=== PATIENT | female | born 1975 | race Caucasian/White ===

== ENCOUNTER 2021-05-01 13:14 | Inpatient (IN) | payer MEDICAID, OTHER ==
[~2021-05-01] VITALS: Ht 175.3 cm; Wt 82.7 kg
[~2021-05-01 13:14] MED LIST: ARIP1TAB7 PO; BUPR150T42 PO; CITA20TA9 PO; DICY20TA PO; FAMO40TA7; FER325T PO; HYDR-2598; LAMO100T44; LORA-205; LORA-205 PO; VENL-165 PO
[2021-05-01] MEDS ORDERED: SODIUM CHLORIDE 0.9% 1,000 ML IV ONE (14:00)
[2021-05-01] MEDS ORDERED: AZITHROMYCIN 500MG/ 250ML 250 ML IV ONE (14:15)
[2021-05-01] MEDS ORDERED: cefTRIAXone 1GM/50ML D5W 50 ML IV ONE (14:15)
[2021-05-01] MEDS ORDERED: DexAMETHasone SOD PHOS 10MG/1ML VIAL INJ IV ONE (14:15)
[2021-05-01 14:55] LABS: Mean Corpuscular Hemoglobin 16.5 pg (28.0-32.0); Mean Corpuscular Hgb Conc. 25.9 g/dL (32.0-36.0)
[2021-05-01 14:56] LABS: Hematocrit 24.3 % (36.0-46.0); Red Blood Cells 3.81 10^6/uL (4.0-5.20)
[2021-05-01 15:12] LABS: Albumin 2.4 g/dL (3.4-5.0)
[2021-05-01 15:17] LABS: BUN/Creatinine Ratio 15.5; Bilirubin, Total 0.3 mg/dL (0.2-1.0)
[2021-05-01 15:19] LABS: Hemoglobin 6.3 g/dL (12.2-16.2); White Blood Cell 1.6 10^3/uL (4.4-10.8)
[2021-05-01 15:21] LABS: Basophils % (manual) 0 (0.0-2.0); Blast Cells 0; Eosinophils % (manual) 0 (0-7); Metamyelocytes % 0; Myelocytes % 0; Promyelocytes % 0; Reactive Lymphocytes 0
[2021-05-01 15:54] LABS: Potassium 2.8 mmol/L (3.5-5.1)
[2021-05-01 16:49] LABS: Band Neutrophils % (manual) 6; Lymphocytes % (manual) 21 (10.0-50.0); Monocytes % (manual) 10 (0-12)
[2021-05-01 19:50] VITALS: BP 128/80
[2021-05-01 20:10] VITALS: BP 133/80
[2021-05-01 20:40] VITALS: BP 128/82
[2021-05-01] MEDS ORDERED: DOCUSATE SOD 100 MG CAP PO PRN (21:00)
[2021-05-01] MEDS ORDERED: TEMAZEPAM 15 MG CAP PO PRN (21:00)
[2021-05-01] MEDS: SODIUM CHLORIDE 0.9% 1,000 ML IV SCH (21:00)
[2021-05-01 21:30] VITALS: BP 122/77
[2021-05-01 22:30] VITALS: BP 130/78
[2021-05-01] MEDS ORDERED: MORPHINE SULFATE INJECTION 2 MG/ML SYRG IV PRN (22:30)
[2021-05-01] MEDS ORDERED: NITROGLYCERIN 0.4 MG SL TAB SL PRN (22:30)
[2021-05-01] MEDS: FAMOTIDINE (10MG/ML) 2ML VL IV SCH (22:52)
[2021-05-01] MEDS: POTASSIUM CHL 20MEQ/100ML 100 ML IV SCH (22:53)
[2021-05-01] MEDS: ONDANSETRON HCL 4 MG/2 ML VIAL IV PRN (22:53)
[2021-05-01 22:59] VITALS: BP 130/78
[2021-05-01] MEDS: HYDROmorphone HCL 2 MG/ML VL IV PRN (23:04)
[2021-05-02] MEDS: POTASSIUM CHL 20MEQ/100ML 100 ML IV SCH (01:00)
[2021-05-02 02:28] LABS: Urine Bacteria FEW /hpf (None Seen); Urine Blood Negative /uL (Negative); Urine Hyaline Cast MANY /lpf (0 - 2); Urine WBC 6 /hpf (0 - 5)
[2021-05-02] MEDS: HYDROmorphone HCL 2 MG/ML VL IV PRN ×4 (03:54→20:42)
[2021-05-02 05:00] VITALS: BP 113/78
[2021-05-02 05:19] VITALS: BP 117/77
[2021-05-02 06:30] LABS: Hemoglobin 7.6 g/dL (12.2-16.2); Mean Corpuscular Hemoglobin 18.6 pg (28.0-32.0); Mean Corpuscular Hgb Conc. 29.2 g/dL (32.0-36.0); Mean Corpuscular Volume 63.7 fL (80.0-100.0); Red Blood Cells 4.07 10^6/uL (4.0-5.20)
[2021-05-02 06:36] LABS: % Iron Saturation 3.6 % (15-50)
[2021-05-02 06:37] LABS: Potassium 4.1 mmol/L (3.5-5.1)
[2021-05-02 06:40] LABS: Ferritin 42.8 ng/mL (10-322)
[2021-05-02 06:51] LABS: Albumin 2.5 g/dL (3.4-5.0); BUN/Creatinine Ratio 21.1; Bilirubin, Total 0.4 mg/dL (0.2-1.0); CRP High Sensitivity 6.56 mg/dL (< 0.3); Calcium 7.1 mg/dL (8.5-10.1); Total Protein 5.8 g/dL (6.4-8.2)
[2021-05-02 06:55] LABS: Thyroid Stimulating Hormone 4.86 uIU/mL (0.358-3.74)
[2021-05-02 07:00] LABS: Red Cell Distribution Width 23.7 % (11.8-14.3)
[2021-05-02 07:03] LABS: White Blood Cell 1.5 10^3/uL (4.4-10.8)
[2021-05-02 07:05] LABS: Eosinophils % (manual) 0 (0-7)
[2021-05-02 07:06] LABS: Basophils % (manual) 0 (0.0-2.0); Blast Cells 0; Myelocytes % 0; Promyelocytes % 0; Reactive Lymphocytes 0
[2021-05-02 08:51] VITALS: BP 115/70
[2021-05-02] MEDS: DexAMETHasone SOD PHOS 10MG/1ML VIAL INJ IV SCH (10:00)
[2021-05-02] MEDS: FAMOTIDINE (10MG/ML) 2ML VL IV SCH ×2 (10:01→20:41)
[2021-05-02] MEDS: AZITHROMYCIN 500MG/ 250ML 250 ML IV SCH (10:01)
[2021-05-02] MEDS: MULTIPLE VITAMIN TAB PO SCH (10:02)
[2021-05-02] MEDS: CHOLECALCIFEROL (VITD3) 2,000 UNIT CAP/TAB PO SCH (10:02)
[2021-05-02] MEDS: ZINC SULFATE 220mg CAP or TAB PO SCH (10:02)
[2021-05-02] MEDS: ASCORBIC ACID 1,000 MG TAB PO SCH (10:02)
[2021-05-02] MEDS: ENOXAPARIN SOD 40 MG/0.4 ML SYRINGE SC SCH (10:03)
[2021-05-02] MEDS: cefTRIAXone 1GM/50ML D5W 50 ML IV SCH (10:04)
[2021-05-02] MEDS: BUDESONIDE (INHALATION) 180 MCG IH IN SCH ×2 (10:54→21:17)
[2021-05-02] MEDS: ALBUTEROL SULF HFA 90MCG INH 200DOSE IN PRN ×2 (10:55→23:50)
[2021-05-02 12:09] LABS: Band Neutrophils % (manual) 6; Lymphocytes % (manual) 27 (10.0-50.0); Metamyelocytes % 1; Monocytes % (manual) 7 (0-12)
[2021-05-02] MEDS: ONDANSETRON HCL 4 MG/2 ML VIAL IV PRN (12:26)
[2021-05-02 12:54] VITALS: BP 100/68
[2021-05-02] MEDS: SODIUM CHLORIDE 0.9% 1,000 ML IV SCH (14:05)
[2021-05-02 16:50] VITALS: BP 113/72
[2021-05-02 22:00] VITALS: BP 120/68
[2021-05-03] MEDS: HYDROmorphone HCL 2 MG/ML VL IV PRN ×5 (00:47→20:53)
[2021-05-03 04:50] VITALS: BP 111/72
[2021-05-03] MEDS: SODIUM CHLORIDE 0.9% 1,000 ML IV SCH (06:36)
[2021-05-03 07:02] LABS: Basophils # (auto) 0 10 ^3/uL (0-0.2); Eosinophils # (auto) 0 10 ^3/uL (0-0.8); Lymphocytes # (auto) 0.6 10 ^3/uL (0.4-5.4); Mean Corpuscular Hgb Conc. 28.8 g/dL (32.0-36.0); Monocytes # (auto) 0.2 10 ^3/uL (0-1.3); White Blood Cell 2.2 10^3/uL (4.4-10.8)
[2021-05-03 07:04] LABS: Hematocrit 25.7 % (36.0-46.0); Lymphocytes % (auto) 25.1 % (10.0-50.0); Monocytes % (auto) 8.2 % (0.0-12.0); Neutrophils # (auto) 1.5 10 ^3/uL (1.6-8.6); Neutrophils % (auto) 66.7 % (37.0-80.0); Red Blood Cells 3.93 10^6/uL (4.0-5.20)
[2021-05-03 07:06] LABS: Nucleated Red Blood Cells % 3.2 %
[2021-05-03 07:07] LABS: Hemoglobin 7.4 g/dL (12.2-16.2); Mean Corpuscular Hemoglobin 18.8 pg (28.0-32.0); Mean Corpuscular Volume 65.4 fL (80.0-100.0); Red Cell Distribution Width 23.8 % (11.8-14.3)
[2021-05-03 07:24] LABS: Potassium 4.3 mmol/L (3.5-5.1)
[2021-05-03 07:30] LABS: Albumin 2.5 g/dL (3.4-5.0); BUN/Creatinine Ratio 19.3; Bilirubin, Total 0.4 mg/dL (0.2-1.0); Calcium 7.4 mg/dL (8.5-10.1); Total Protein 5.9 g/dL (6.4-8.2)
[2021-05-03] MEDS: LORazepam 2MG/ML-1ML VIAL IV PRN ×2 (07:33→17:55)
[2021-05-03 08:41] VITALS: BP 123/74
[2021-05-03] MEDS: DexAMETHasone SOD PHOS 10MG/1ML VIAL INJ IV SCH (08:59)
[2021-05-03] MEDS: cefTRIAXone 1GM/50ML D5W 50 ML IV SCH (08:59)
[2021-05-03] MEDS: ZINC SULFATE 220mg CAP or TAB PO SCH (08:59)
[2021-05-03] MEDS: FAMOTIDINE (10MG/ML) 2ML VL IV SCH ×2 (08:59→20:00)
[2021-05-03] MEDS: AZITHROMYCIN 500MG/ 250ML 250 ML IV SCH (08:59)
[2021-05-03] MEDS: ENOXAPARIN SOD 40 MG/0.4 ML SYRINGE SC SCH (09:00)
[2021-05-03] MEDS: ASCORBIC ACID 1,000 MG TAB PO SCH (09:00)
[2021-05-03] MEDS: MULTIPLE VITAMIN TAB PO SCH (09:00)
[2021-05-03] MEDS: CHOLECALCIFEROL (VITD3) 2,000 UNIT CAP/TAB PO SCH (09:00)
[2021-05-03 09:13] LABS: Free T4 (Free Thyroxine) 0.57 ng/dL (0.89-1.76)
[2021-05-03 09:14] LABS: Folate (Folic Acid) > 24.00 ng/mL (5.38-24)
[2021-05-03] MEDS: BUDESONIDE (INHALATION) 180 MCG IH IN SCH ×2 (09:17→18:30)
[2021-05-03] MEDS: ALBUTEROL SULF HFA 90MCG INH 200DOSE IN PRN ×2 (09:17→18:30)
[2021-05-03 12:48] LABS: Alcohol, Urine < 3.0 mg/dL (0-10); Amphetamine Screen, Urine NEGATIVE (NEGATIVE); Barbiturate Scree,Urine NEGATIVE (NEGATIVE); Benzodiazephine Screen, Urine NEGATIVE (NEGATIVE); Cannabinoid Screen, Urine NEGATIVE (NEGATIVE); Cocaine Screen, Urine NEGATIVE (NEGATIVE); Opiate Scree,Urine NEGATIVE (NEGATIVE); Phencyclidine Screen, Urine NEGATIVE (NEGATIVE)
[2021-05-03 12:51] VITALS: BP 122/82
[2021-05-03] MEDS ORDERED: REMDESIVIR 200 MG in NS 210ml LOADING DOSE ADULT IV ONE (15:00)
[2021-05-03 17:00] VITALS: BP 113/71
[2021-05-03 22:14] VITALS: BP 116/64
[2021-05-04] VITALS (7 sets, daily range): BP systolic 109–128; BP diastolic 68–92
[2021-05-04] MEDS: LORazepam 2MG/ML-1ML VIAL IV PRN ×2 (04:27→18:32)
[2021-05-04] MEDS: HYDROmorphone HCL 2 MG/ML VL IV PRN ×3 (05:23→23:30)
[2021-05-04] MEDS: BUDESONIDE (INHALATION) 180 MCG IH IN SCH ×2 (05:45→19:20)
[2021-05-04] MEDS: ALBUTEROL SULF HFA 90MCG INH 200DOSE IN PRN ×2 (05:45→19:20)
[2021-05-04 07:18] LABS: Albumin 2.3 g/dL (3.4-5.0); Calcium 7.4 mg/dL (8.5-10.1); Potassium 3.9 mmol/L (3.5-5.1)
[2021-05-04 07:22] LABS: Bilirubin, Total 0.5 mg/dL (0.2-1.0); Total Protein 5.4 g/dL (6.4-8.2)
[2021-05-04] MEDS: DexAMETHasone SOD PHOS 10MG/1ML VIAL INJ IV SCH (09:43)
[2021-05-04 09:44] LABS: Basophils # (auto) 0 10 ^3/uL (0-0.2); Eosinophils # (auto) 0 10 ^3/uL (0-0.8); Lymphocytes # (auto) 0.7 10 ^3/uL (0.4-5.4); Monocytes # (auto) 0.2 10 ^3/uL (0-1.3); Red Blood Cells 3.77 10^6/uL (4.0-5.20); White Blood Cell 2.3 10^3/uL (4.4-10.8)
[2021-05-04 09:45] LABS: Basophils % (auto) 0.5 % (0.0-2.0); Hematocrit 24.7 % (36.0-46.0); Lymphocytes % (auto) 28.9 % (10.0-50.0); Mean Corpuscular Hgb Conc. 28.3 g/dL (32.0-36.0); Neutrophils # (auto) 1.5 10 ^3/uL (1.6-8.6); Neutrophils % (auto) 63.6 % (37.0-80.0)
[2021-05-04] MEDS: MULTIPLE VITAMIN TAB PO SCH (09:46)
[2021-05-04] MEDS: ASCORBIC ACID 1,000 MG TAB PO SCH (09:46)
[2021-05-04] MEDS: CHOLECALCIFEROL (VITD3) 2,000 UNIT CAP/TAB PO SCH (09:47)
[2021-05-04] MEDS: ZINC SULFATE 220mg CAP or TAB PO SCH (09:48)
[2021-05-04] MEDS: cefTRIAXone 1GM/50ML D5W 50 ML IV SCH (09:49)
[2021-05-04] MEDS: ENOXAPARIN SOD 40 MG/0.4 ML SYRINGE SC SCH (10:00)
[2021-05-04 10:21] LABS: Nucleated Red Blood Cells % 4.2 %
[2021-05-04 10:23] LABS: Mean Corpuscular Hemoglobin 18.5 pg (28.0-32.0); Mean Corpuscular Volume 65.5 fL (80.0-100.0)
[2021-05-04 10:24] LABS: Red Cell Distribution Width 24.3 % (11.8-14.3)
[2021-05-04] MEDS: FAMOTIDINE 20 MG TAB PO SCH ×2 (10:59→22:30)
[2021-05-04] MEDS: AZITHROMYCIN 500MG/ 250ML 250 ML IV SCH (11:00)
[2021-05-04] MEDS: SODIUM FERR GLUC 62.5MG/5ML 125 MG in SODIUM CHL 0.9% 100 ML IV SCH (14:37)
[2021-05-04] MEDS: REMDESIVIR 100mg 100 MG in SODIUM CHL 0.9% 230 ML IV SCH (15:46)
[2021-05-05] MEDS: HYDROmorphone HCL 2 MG/ML VL IV PRN ×4 (04:41→20:43)
[2021-05-05 05:00] VITALS: BP 117/69
[2021-05-05] MEDS: BUDESONIDE (INHALATION) 180 MCG IH IN SCH ×2 (06:56→21:00)
[2021-05-05] MEDS: ALBUTEROL SULF HFA 90MCG INH 200DOSE IN PRN (06:56)
[2021-05-05 07:05] LABS: Hematocrit 27.5 % (36.0-46.0); Hemoglobin 7.7 g/dL (12.2-16.2); Mean Corpuscular Hgb Conc. 27.9 g/dL (32.0-36.0); White Blood Cell 2.6 10^3/uL (4.4-10.8)
[2021-05-05 07:07] LABS: Mean Corpuscular Hemoglobin 17.9 pg (28.0-32.0); Mean Corpuscular Volume 64.3 fL (80.0-100.0); Red Blood Cells 4.28 10^6/uL (4.0-5.20)
[2021-05-05 07:15] LABS: Red Cell Distribution Width 25.1 % (11.8-14.3)
[2021-05-05 07:17] LABS: Basophils % (manual) 0 (0.0-2.0); Blast Cells 0; Eosinophils % (manual) 0 (0-7); Metamyelocytes % 0; Myelocytes % 0; Promyelocytes % 0; Reactive Lymphocytes 0
[2021-05-05 07:48] LABS: Potassium 4.1 mmol/L (3.5-5.1)
[2021-05-05 08:00] VITALS: BP 116/78
[2021-05-05 08:00] LABS: Albumin 2.2 g/dL (3.4-5.0); BUN/Creatinine Ratio 19.5; Bilirubin, Total 0.4 mg/dL (0.2-1.0); CRP High Sensitivity 7.77 mg/dL (< 0.3); Calcium 7.8 mg/dL (8.5-10.1); Total Protein 5.6 g/dL (6.4-8.2)
[2021-05-05 09:00] VITALS: BP 116/78
[2021-05-05] MEDS: cefTRIAXone 1GM/50ML D5W 50 ML IV SCH (09:11)
[2021-05-05] MEDS: DexAMETHasone SOD PHOS 10MG/1ML VIAL INJ IV SCH (09:11)
[2021-05-05] MEDS: FAMOTIDINE 20 MG TAB PO SCH ×2 (09:12→21:09)
[2021-05-05] MEDS: ZINC SULFATE 220mg CAP or TAB PO SCH (09:12)
[2021-05-05] MEDS: MULTIPLE VITAMIN TAB PO SCH (09:12)
[2021-05-05] MEDS: ASCORBIC ACID 1,000 MG TAB PO SCH (09:12)
[2021-05-05] MEDS: CHOLECALCIFEROL (VITD3) 2,000 UNIT CAP/TAB PO SCH (09:12)
[2021-05-05 09:53] LABS: Band Neutrophils % (manual) 8; Lymphocytes % (manual) 24 (10.0-50.0); Monocytes % (manual) 6 (0-12)
[2021-05-05] MEDS: ENOXAPARIN SOD 40 MG/0.4 ML SYRINGE SC SCH (10:00)
[2021-05-05] MEDS: AZITHROMYCIN 500MG/ 250ML 250 ML IV SCH (10:53)
[2021-05-05] MEDS ORDERED: LACTULOSE 20Gm/30ML SOLN PO ONE (11:15)
[2021-05-05] MEDS ORDERED: FUROSEMIDE 40 MG/4 ML VIAL IV ONE (11:15)
[2021-05-05 13:00] VITALS: BP 119/73
[2021-05-05] MEDS: LORazepam 2MG/ML-1ML VIAL IV PRN (13:11)
[2021-05-05] MEDS: SODIUM FERR GLUC 62.5MG/5ML 125 MG in SODIUM CHL 0.9% 100 ML IV SCH (13:12)
[2021-05-05] MEDS: REMDESIVIR 100mg 100 MG in SODIUM CHL 0.9% 230 ML IV SCH (15:23)
[2021-05-05 16:40] VITALS: BP 101/61
[2021-05-05 21:09] VITALS: BP 124/75
[2021-05-06] MEDS: LORazepam 2MG/ML-1ML VIAL IV PRN ×2 (00:08→14:04)
[2021-05-06] MEDS: ALBUTEROL SULF HFA 90MCG INH 200DOSE IN PRN ×3 (01:25→21:38)
[2021-05-06] MEDS: HYDROmorphone HCL 2 MG/ML VL IV PRN ×4 (02:17→21:10)
[2021-05-06 05:00] VITALS: BP 112/66
[2021-05-06 08:00] VITALS: BP 140/79
[2021-05-06] MEDS: BUDESONIDE (INHALATION) 180 MCG IH IN SCH ×2 (08:42→21:38)
[2021-05-06 09:00] VITALS: BP 140/79
[2021-05-06] MEDS: DexAMETHasone SOD PHOS 10MG/1ML VIAL INJ IV SCH (09:48)
[2021-05-06] MEDS: cefTRIAXone 1GM/50ML D5W 50 ML IV SCH (09:48)
[2021-05-06] MEDS: MULTIPLE VITAMIN TAB PO SCH (09:49)
[2021-05-06] MEDS: ZINC SULFATE 220mg CAP or TAB PO SCH (09:49)
[2021-05-06] MEDS: FUROSEMIDE 40 MG/4 ML VIAL IV SCH (09:49)
[2021-05-06] MEDS: FAMOTIDINE 20 MG TAB PO SCH ×2 (09:49→21:08)
[2021-05-06] MEDS: POTASSIUM CHL 20 Meq TABLET PO SCH (09:49)
[2021-05-06] MEDS: CHOLECALCIFEROL (VITD3) 2,000 UNIT CAP/TAB PO SCH (09:50)
[2021-05-06] MEDS: ASCORBIC ACID 1,000 MG TAB PO SCH (09:50)
[2021-05-06] MEDS ORDERED: LACTULOSE 20Gm/30ML SOLN PO PRN (10:00)
[2021-05-06] MEDS: ENOXAPARIN SOD 40 MG/0.4 ML SYRINGE SC SCH (10:00)
[2021-05-06] MEDS: AZITHROMYCIN 500MG/ 250ML 250 ML IV SCH (11:13)
[2021-05-06 12:10] LABS: Calcium 7.7 mg/dL (8.5-10.1); Potassium 3.8 mmol/L (3.5-5.1)
[2021-05-06 12:12] LABS: Hemoglobin 7.5 g/dL (12.2-16.2); White Blood Cell 7.4 10^3/uL (4.4-10.8)
[2021-05-06 12:14] LABS: Hematocrit 26.2 % (36.0-46.0); Mean Corpuscular Hemoglobin 18.6 pg (28.0-32.0); Mean Corpuscular Hgb Conc. 28.6 g/dL (32.0-36.0); Mean Corpuscular Volume 64.8 fL (80.0-100.0); Red Blood Cells 4.04 10^6/uL (4.0-5.20); Red Cell Distribution Width 26.4 % (11.8-14.3)
[2021-05-06 12:26] LABS: Basophils % (manual) 0 (0.0-2.0); Blast Cells 0; Eosinophils % (manual) 0 (0-7); Metamyelocytes % 0; Myelocytes % 0; Promyelocytes % 0; Reactive Lymphocytes 0
[2021-05-06 12:27] LABS: Albumin 2.1 g/dL (3.4-5.0); BUN/Creatinine Ratio 8.1; Bilirubin, Total 0.6 mg/dL (0.2-1.0); Total Protein 5.4 g/dL (6.4-8.2)
[2021-05-06] MEDS: SODIUM FERR GLUC 62.5MG/5ML 125 MG in SODIUM CHL 0.9% 100 ML IV SCH (13:04)
[2021-05-06 13:15] VITALS: BP 125/71
[2021-05-06 14:41] LABS: Band Neutrophils % (manual) 4; Lymphocytes % (manual) 15 (10.0-50.0); Monocytes % (manual) 5 (0-12)
[2021-05-06 16:51] VITALS: BP 142/76
[2021-05-06] MEDS: ONDANSETRON HCL 4 MG/2 ML VIAL IV PRN (18:39)
[2021-05-06 22:00] VITALS: BP 143/81
[2021-05-07] VITALS (7 sets, daily range): BP systolic 122–149; BP diastolic 71–102
[2021-05-07] MEDS: ALBUTEROL SULF HFA 90MCG INH 200DOSE IN PRN (05:48)
[2021-05-07] MEDS: BUDESONIDE (INHALATION) 180 MCG IH IN SCH ×2 (05:48→22:05)
[2021-05-07 07:01] LABS: Eosinophils # (auto) 0 10 ^3/uL (0-0.8); Hemoglobin 9.1 g/dL (12.2-16.2)
[2021-05-07 07:03] LABS: Basophils # (auto) 0.1 10 ^3/uL (0-0.2); Basophils % (auto) 0.5 % (0.0-2.0); Hematocrit 31.8 % (36.0-46.0); Lymphocytes # (auto) 0.6 10 ^3/uL (0.4-5.4); Lymphocytes % (auto) 5.1 % (10.0-50.0); Mean Corpuscular Hemoglobin 19.1 pg (28.0-32.0); Mean Corpuscular Hgb Conc. 28.6 g/dL (32.0-36.0); Mean Corpuscular Volume 66.9 fL (80.0-100.0); Monocytes # (auto) 0.3 10 ^3/uL (0-1.3); Monocytes % (auto) 2.8 % (0.0-12.0); Neutrophils % (auto) 91.6 % (37.0-80.0); Nucleated Red Blood Cells % 1.6 %; Red Blood Cells 4.76 10^6/uL (4.0-5.20); White Blood Cell 12.1 10^3/uL (4.4-10.8)
[2021-05-07 07:17] LABS: Potassium 3.8 mmol/L (3.5-5.1)
[2021-05-07 07:22] LABS: Red Cell Distribution Width 27.1 % (11.8-14.3)
[2021-05-07 07:25] LABS: BUN/Creatinine Ratio 6.4; Calcium 8.2 mg/dL (8.5-10.1)
[2021-05-07] MEDS: cefTRIAXone 1GM/50ML D5W 50 ML IV SCH (08:35)
[2021-05-07] MEDS: ENOXAPARIN SOD 40 MG/0.4 ML SYRINGE SC SCH (08:36)
[2021-05-07] MEDS: DexAMETHasone SOD PHOS 10MG/1ML VIAL INJ IV SCH (08:36)
[2021-05-07] MEDS: FUROSEMIDE 40 MG/4 ML VIAL IV SCH (08:37)
[2021-05-07] MEDS: ZINC SULFATE 220mg CAP or TAB PO SCH (08:38)
[2021-05-07] MEDS: FAMOTIDINE 20 MG TAB PO SCH (08:38)
[2021-05-07] MEDS: ASCORBIC ACID 1,000 MG TAB PO SCH (08:38)
[2021-05-07] MEDS: POTASSIUM CHL 20 Meq TABLET PO SCH (08:38)
[2021-05-07] MEDS: CHOLECALCIFEROL (VITD3) 2,000 UNIT CAP/TAB PO SCH (08:38)
[2021-05-07] MEDS: MULTIPLE VITAMIN TAB PO SCH (08:38)
[2021-05-07] MEDS: HYDROmorphone HCL 2 MG/ML VL IV PRN ×3 (09:03→20:40)
[2021-05-07] MEDS: SODIUM FERR GLUC 62.5MG/5ML 125 MG in SODIUM CHL 0.9% 100 ML IV SCH (12:04)
[2021-05-07] MEDS: HYOSCYAMINE SULF 0.125 MG ODT TAB PO PRN ×2 (13:56→18:42)
[2021-05-07] MEDS ORDERED: dilTIAZem 25 MG/5 ML VIAL IV ONE (20:02)
[2021-05-07] MEDS ORDERED: TOCILIZUMAB 400 MG in SODIUM CHL 0.9% 80 ML IV SCH (22:00)
[2021-05-08] VITALS (10 sets, daily range): BP systolic 115–136; BP diastolic 65–86
[2021-05-08] MEDS: HYDROmorphone HCL 2 MG/ML VL IV PRN ×5 (00:40→19:27)
[2021-05-08] MEDS: ALBUTEROL SULF HFA 90MCG INH 200DOSE IN PRN ×2 (06:14→19:52)
[2021-05-08] MEDS: BUDESONIDE (INHALATION) 180 MCG IH IN SCH ×2 (06:14→19:10)
[2021-05-08 06:26] LABS: Potassium 4.5 mmol/L (3.5-5.1)
[2021-05-08 06:32] LABS: BUN/Creatinine Ratio 6.4
[2021-05-08 08:58] LABS: Basophils # (auto) 0 10 ^3/uL (0-0.2); Eosinophils # (auto) 0.1 10 ^3/uL (0-0.8); Eosinophils % (auto) 0.6 % (0.0-7.0); Lymphocytes # (auto) 0.6 10 ^3/uL (0.4-5.4); Lymphocytes % (auto) 4.2 % (10.0-50.0); Mean Corpuscular Hemoglobin 19.5 pg (28.0-32.0)
[2021-05-08 08:59] LABS: Basophils % (auto) 0.2 % (0.0-2.0); Hematocrit 28.9 % (36.0-46.0); Mean Corpuscular Hgb Conc. 27.8 g/dL (32.0-36.0); Monocytes # (auto) 0.2 10 ^3/uL (0-1.3); Monocytes % (auto) 1.7 % (0.0-12.0); Neutrophils # (auto) 13.4 10 ^3/uL (1.6-8.6); Neutrophils % (auto) 93.3 % (37.0-80.0); Nucleated Red Blood Cells % 0.6 %; Red Blood Cells 4.13 10^6/uL (4.0-5.20); White Blood Cell 14.4 10^3/uL (4.4-10.8)
[2021-05-08 09:08] LABS: Red Cell Distribution Width 26.8 % (11.8-14.3)
[2021-05-08] MEDS ORDERED: FAMOTIDINE 20 MG TAB PO SCH (10:00)
[2021-05-08] MEDS: CHOLECALCIFEROL (VITD3) 2,000 UNIT CAP/TAB PO SCH (10:08)
[2021-05-08] MEDS: cefTRIAXone 1GM/50ML D5W 50 ML IV SCH (10:09)
[2021-05-08] MEDS: DexAMETHasone SOD PHOS 10MG/1ML VIAL INJ IV SCH (10:10)
[2021-05-08] MEDS: ENOXAPARIN SOD 40 MG/0.4 ML SYRINGE SC SCH (10:14)
[2021-05-08] MEDS: MULTIPLE VITAMIN TAB PO SCH (10:15)
[2021-05-08] MEDS: FERROUS SULFATE 325mg EC TAB PO SCH (11:49)
[2021-05-08 15:09] LABS: BUN/Creatinine Ratio 6.8; Calcium 7.5 mg/dL (8.5-10.1); Potassium 4.8 mmol/L (3.5-5.1)
[2021-05-08] MEDS: SODIUM CHLORIDE 0.9% 1,000 ML IV SCH ×2 (15:18→21:18)
[2021-05-08] MEDS: LORazepam 2MG/ML-1ML VIAL IV PRN (22:46)
[2021-05-09] VITALS (38 sets, daily range): BP systolic 90–198; BP diastolic 61–135
[2021-05-09] MEDS: HYDROmorphone HCL 2 MG/ML VL IV PRN ×3 (00:07→09:59)
[2021-05-09] MEDS: ALBUTEROL SULF HFA 90MCG INH 200DOSE IN PRN (06:00)
[2021-05-09] MEDS: BUDESONIDE (INHALATION) 180 MCG IH IN SCH (06:00)
[2021-05-09] MEDS: SODIUM CHLORIDE 0.9% 1,000 ML IV SCH ×2 (06:27→19:45)
[2021-05-09 06:46] LABS: Potassium 5.4 mmol/L (3.5-5.1)
[2021-05-09 06:53] LABS: BUN/Creatinine Ratio 7.7; Calcium 7.6 mg/dL (8.5-10.1)
[2021-05-09] MEDS: DexAMETHasone SOD PHOS 10MG/1ML VIAL INJ IV SCH (09:59)
[2021-05-09] MEDS ORDERED: SODIUM ZIRCONIUM CYCL 10 GM PAK PO ONE (10:00)
[2021-05-09] MEDS: CHOLECALCIFEROL (VITD3) 2,000 UNIT CAP/TAB PO SCH (10:00)
[2021-05-09] MEDS: MULTIPLE VITAMIN TAB PO SCH (10:01)
[2021-05-09] MEDS: cefTRIAXone 1GM/50ML D5W 50 ML IV SCH (10:02)
[2021-05-09] MEDS: PANTOPRAZOLE 40 MG TAB PO SCH (10:28)
[2021-05-09] MEDS: FERROUS SULFATE 325mg EC TAB PO SCH (11:26)
[2021-05-09] MEDS ORDERED: ETOMIDATE (2MG/ML) 20ML VIAL IV ONE ×2 (14:26→18:30)
[2021-05-09] MEDS ORDERED: ROCURONIUM 10MG/ML 10ML VIAL IV ONE ×2 (14:26→18:30)
[2021-05-09] MEDS ORDERED: fentaNYL Drip 2500mCg/250mlNS 250 ML IV ONE ×2 (14:27→17:01)
[2021-05-09] MEDS ORDERED: PROPOFOL 100 ML IV ONE (14:27)
[2021-05-09 16:05] LABS: Calcium 7.9 mg/dL (8.5-10.1); Potassium 4.8 mmol/L (3.5-5.1)
[2021-05-09 16:07] LABS: BUN/Creatinine Ratio 7.6
[2021-05-09 16:08] LABS: Basophils # (auto) 0 10 ^3/uL (0-0.2); White Blood Cell 14.3 10^3/uL (4.4-10.8)
[2021-05-09 16:10] LABS: Basophils % (auto) 0.2 % (0.0-2.0); Eosinophils # (auto) 0 10 ^3/uL (0-0.8); Hematocrit 27.9 % (36.0-46.0); Lymphocytes # (auto) 0.5 10 ^3/uL (0.4-5.4); Lymphocytes % (auto) 3.6 % (10.0-50.0); Mean Corpuscular Hemoglobin 19.5 pg (28.0-32.0); Mean Corpuscular Hgb Conc. 28.8 g/dL (32.0-36.0); Mean Corpuscular Volume 67.8 fL (80.0-100.0); Monocytes # (auto) 0.2 10 ^3/uL (0-1.3); Monocytes % (auto) 1.6 % (0.0-12.0); Neutrophils # (auto) 13.5 10 ^3/uL (1.6-8.6); Neutrophils % (auto) 94.6 % (37.0-80.0); Nucleated Red Blood Cells % 0.3 %; Red Blood Cells 4.12 10^6/uL (4.0-5.20)
[2021-05-09 16:47] LABS: Red Cell Distribution Width 27.2 % (11.8-14.3)
[2021-05-09] MEDS: LORazepam 2MG/ML-1ML VIAL IV PRN (16:47)
[2021-05-09] MEDS: fentaNYL Drip 2500mCg/250mlNS 250 ML IV SCH (17:00)
[2021-05-09] MEDS: PROPOFOL 100 ML IV SCH (18:00)
[2021-05-10] VITALS (97 sets, daily range): BP systolic 84–144; BP diastolic 49–86
[2021-05-10] MEDS ORDERED: NOREPINEPHRINE 8 MG/250ML KIT 250 ML IV ONE (03:33)
[2021-05-10] MEDS: ALBUTEROL SULF 2.5 MG/0.5ML(0.5%) NEB SOLN NEB PRN ×2 (06:20→22:18)
[2021-05-10] MEDS: BUDESONIDE (INHALATION) 0.5 MG/2 ML NEB NEB SCH ×2 (06:20→22:17)
[2021-05-10 07:22] LABS: Hematocrit 29.4 % (36.0-46.0); Hemoglobin 8.3 g/dL (12.2-16.2); Mean Corpuscular Hemoglobin 20.4 pg (28.0-32.0); Mean Corpuscular Hgb Conc. 28.4 g/dL (32.0-36.0); Mean Corpuscular Volume 71.8 fL (80.0-100.0); Red Blood Cells 4.09 10^6/uL (4.0-5.20); White Blood Cell 18.6 10^3/uL (4.4-10.8)
[2021-05-10 07:33] LABS: Red Cell Distribution Width 28.5 % (11.8-14.3)
[2021-05-10 07:35] LABS: Basophils % (manual) 0 (0.0-2.0); Blast Cells 0; Eosinophils % (manual) 0 (0-7); Lymphocytes % (manual) 0 (10.0-50.0); Myelocytes % 0; Promyelocytes % 0; Reactive Lymphocytes 0
[2021-05-10 07:55] LABS: BUN/Creatinine Ratio 7.7; Bilirubin, Total 0.4 mg/dL (0.2-1.0); CRP High Sensitivity 11.6 mg/dL (< 0.3); Calcium 7.5 mg/dL (8.5-10.1); Total Protein 5.6 g/dL (6.4-8.2)
[2021-05-10 08:16] LABS: Potassium 5.6 mmol/L (3.5-5.1)
[2021-05-10 08:18] LABS: Band Neutrophils % (manual) 5; Metamyelocytes % 1; Monocytes % (manual) 3 (0-12)
[2021-05-10] MEDS: MIDAZOLAM DRIP 50 mg/50mL 50 ML IV SCH ×3 (08:21→15:30)
[2021-05-10] MEDS: cefTRIAXone 1GM/50ML D5W 50 ML IV SCH (08:31)
[2021-05-10] MEDS: PROPOFOL 100 ML IV SCH ×3 (08:31→15:00)
[2021-05-10] MEDS ORDERED: ALBUTEROL SULF 2.5 MG/0.5ML(0.5%) NEB SOLN NEB ONE (08:45)
[2021-05-10] MEDS ORDERED: SODIUM BICARBONATE 50ML VIAL 150 ML in D5W 5% 1,000 ML IV SCH (08:45)
[2021-05-10] MEDS ORDERED: SODIUM BICARBONATE 8.4% INJ 50ML SYRINGE IV ONE (08:45)
[2021-05-10] MEDS ORDERED: SODIUM ZIRCONIUM CYCL 10 GM PAK PO ONE (08:45)
[2021-05-10] MEDS ORDERED: SODIUM CHL 0.9% 1000 ML BAG XX ONE (09:00)
[2021-05-10] MEDS ORDERED: FUROSEMIDE 40 MG/4 ML VIAL IV ONE (09:00)
[2021-05-10] MEDS: DexAMETHasone SOD PHOS 10MG/1ML VIAL INJ IV SCH (09:04)
[2021-05-10] MEDS: MULTIPLE VITAMIN TAB PO SCH (09:04)
[2021-05-10] MEDS: PANTOPRAZOLE 40 MG TAB PO SCH (09:04)
[2021-05-10] MEDS: CHOLECALCIFEROL (VITD3) 2,000 UNIT CAP/TAB PO SCH (09:04)
[2021-05-10] MEDS: METOPROLOL SUCCINATE XL 50 MG TAB PO SCH (10:00)
[2021-05-10 10:21] LABS: INR 1.12 (0.9-1.15); Partial Thromboplastin Time 26.8 sec (23.6-33.0)
[2021-05-10] MEDS: FERROUS SULFATE 325mg EC TAB PO SCH (12:00)
[2021-05-10 13:01] LABS: Hepatitis A Ab IgM Negative
[2021-05-10 13:05] LABS: Hepatitis B Core IgM Negative; Hepatitis C Antibody Negative (Negative)
[2021-05-10] MEDS ORDERED: SODIUM ZIRCONIUM CYCL 10 GM PAK PO SCH (14:00)
[2021-05-10] MEDS: NOREPINEPHRINE 8 MG/250ML KIT 250 ML IV SCH (14:50)
[2021-05-10] MEDS: ALBUMIN 25% 100 ML IV PRN ×2 (15:30→16:30)
[2021-05-10] MEDS: fentaNYL Drip 2500mCg/250mlNS 250 ML IV SCH (18:30)
[2021-05-10] MEDS: MEROPENEM 500MG IVPB 50 ML IV SCH (20:00)
[2021-05-10] MEDS ORDERED: EPOETIN ALFA-EPBX 10,000 UNIT/1ML VIAL SC ONE (21:00)
[2021-05-11] VITALS (78 sets, daily range): BP systolic 82–198; BP diastolic 47–123
[2021-05-11] MEDS: NOREPINEPHRINE 8 MG/250ML KIT 250 ML IV SCH (03:45)
[2021-05-11] MEDS: ALBUTEROL SULF 2.5 MG/0.5ML(0.5%) NEB SOLN NEB PRN ×2 (06:16→23:07)
[2021-05-11] MEDS: BUDESONIDE (INHALATION) 0.5 MG/2 ML NEB NEB SCH ×2 (06:16→23:07)
[2021-05-11 06:36] LABS: BUN/Creatinine Ratio 7.1; Calcium 6.8 mg/dL (8.5-10.1); Potassium 4.5 mmol/L (3.5-5.1)
[2021-05-11] MEDS: PROPOFOL 100 ML IV SCH ×5 (08:00→23:58)
[2021-05-11] MEDS: METOPROLOL SUCCINATE XL 50 MG TAB PO SCH (08:38)
[2021-05-11] MEDS: MULTIPLE VITAMIN TAB PO SCH (09:14)
[2021-05-11] MEDS: PANTOPRAZOLE 40 MG TAB PO SCH (09:14)
[2021-05-11] MEDS: DexAMETHasone SOD PHOS 10MG/1ML VIAL INJ IV SCH (09:14)
[2021-05-11] MEDS: CHOLECALCIFEROL (VITD3) 2,000 UNIT CAP/TAB PO SCH (09:14)
[2021-05-11] MEDS: fentaNYL Drip 2500mCg/250mlNS 250 ML IV SCH ×2 (09:15→20:15)
[2021-05-11 11:58] LABS: White Blood Cell 11.3 10^3/uL (4.4-10.8)
[2021-05-11 12:01] LABS: Hematocrit 24.5 % (36.0-46.0); Mean Corpuscular Hemoglobin 20.6 pg (28.0-32.0); Mean Corpuscular Hgb Conc. 28.6 g/dL (32.0-36.0); Mean Corpuscular Volume 72.2 fL (80.0-100.0); Red Blood Cells 3.39 10^6/uL (4.0-5.20)
[2021-05-11 12:03] LABS: Hemoglobin 7.2 g/dL (12.2-16.2)
[2021-05-11 12:05] LABS: Basophils % (manual) 0 (0.0-2.0); Blast Cells 0; Eosinophils % (manual) 0 (0-7); Metamyelocytes % 0; Myelocytes % 0; Promyelocytes % 0; Reactive Lymphocytes 0
[2021-05-11 12:57] LABS: Band Neutrophils % (manual) 5; Lymphocytes % (manual) 5 (10.0-50.0); Monocytes % (manual) 2 (0-12)
[2021-05-11] MEDS ORDERED: PANTOPRAZOLE 40 MG/10 ML VIAL INJ IV ONE (16:45)
[2021-05-11] MEDS: MEROPENEM 500MG IVPB 50 ML IV SCH (17:25)
[2021-05-11] MEDS: MIDAZOLAM DRIP 50 mg/50mL 50 ML IV SCH (23:06)
[2021-05-12] VITALS (106 sets, daily range): BP systolic 86–147; BP diastolic 40–87
[2021-05-12] MEDS: MIDAZOLAM DRIP 50 mg/50mL 50 ML IV SCH ×3 (02:24→19:23)
[2021-05-12] MEDS: PROPOFOL 100 ML IV SCH (03:26)
[2021-05-12 04:42] LABS: Hematocrit 24.1 % (36.0-46.0); Mean Corpuscular Hemoglobin 20.3 pg (28.0-32.0); Mean Corpuscular Hgb Conc. 28.6 g/dL (32.0-36.0); Mean Corpuscular Volume 71.1 fL (80.0-100.0); Red Blood Cells 3.39 10^6/uL (4.0-5.20); White Blood Cell 11.7 10^3/uL (4.4-10.8)
[2021-05-12 04:59] LABS: BUN/Creatinine Ratio 7.7; Calcium 6.7 mg/dL (8.5-10.1); Potassium 4.3 mmol/L (3.5-5.1); Red Cell Distribution Width 30.1 % (11.8-14.3)
[2021-05-12] MEDS: NOREPINEPHRINE 8 MG/250ML KIT 250 ML IV SCH (05:08)
[2021-05-12 05:14] LABS: Hemoglobin 6.9 g/dL (12.2-16.2)
[2021-05-12 05:19] LABS: Basophils % (manual) 0 (0.0-2.0); Blast Cells 0; Eosinophils % (manual) 0 (0-7); Promyelocytes % 0; Reactive Lymphocytes 0
[2021-05-12 06:51] LABS: Band Neutrophils % (manual) 3; Lymphocytes % (manual) 5 (10.0-50.0); Metamyelocytes % 2; Monocytes % (manual) 6 (0-12); Myelocytes % 1
[2021-05-12] MEDS: DexAMETHasone SOD PHOS 10MG/1ML VIAL INJ IV SCH (09:47)
[2021-05-12] MEDS: MULTIPLE VITAMIN TAB PO SCH (09:47)
[2021-05-12] MEDS: METOPROLOL SUCCINATE XL 50 MG TAB PO SCH (09:47)
[2021-05-12] MEDS: CHOLECALCIFEROL (VITD3) 2,000 UNIT CAP/TAB PO SCH (09:47)
[2021-05-12] MEDS: PANTOPRAZOLE 40 MG/10 ML VIAL INJ IV SCH (09:47)
[2021-05-12] MEDS ORDERED: Nepro With Carb Steady 1 Liter Bottle GT SCH (13:15)
[2021-05-12] MEDS: BUDESONIDE (INHALATION) 0.5 MG/2 ML NEB NEB SCH ×2 (15:32→23:14)
[2021-05-12] MEDS: ALBUTEROL SULF 2.5 MG/0.5ML(0.5%) NEB SOLN NEB PRN ×3 (15:32→23:15)
[2021-05-12] MEDS: MEROPENEM 500MG IVPB 50 ML IV SCH (18:00)
[2021-05-12] MEDS ORDERED: SODIUM FERR GLUC 62.5MG/5ML 125 MG in SODIUM CHL 0.9% 100 ML IV ONE (19:30)
[2021-05-12] MEDS ORDERED: EPOETIN ALFA-EPBX 4,000 UNIT/ML VIAL SC ONE (21:00)
[2021-05-12] MEDS: Pro-Stat SF 30ml Vanilla GT SCH (22:00)
[2021-05-13] VITALS (101 sets, daily range): BP systolic 77–138; BP diastolic 43–84
[2021-05-13] MEDS: MIDAZOLAM DRIP 50 mg/50mL 50 ML IV SCH ×2 (00:31→20:24)
[2021-05-13] MEDS: NOREPINEPHRINE 8 MG/250ML KIT 250 ML IV SCH (03:45)
[2021-05-13 04:22] LABS: White Blood Cell 12.8 10^3/uL (4.4-10.8)
[2021-05-13 04:25] LABS: Hematocrit 31.5 % (36.0-46.0); Hemoglobin 9.6 g/dL (12.2-16.2); Mean Corpuscular Hemoglobin 22.9 pg (28.0-32.0); Mean Corpuscular Hgb Conc. 30.5 g/dL (32.0-36.0)
[2021-05-13 04:29] LABS: Red Cell Distribution Width 33.8 % (11.8-14.3)
[2021-05-13 04:32] LABS: Albumin 2.1 g/dL (3.4-5.0); Basophils % (manual) 0 (0.0-2.0); Blast Cells 0; Calcium 6.9 mg/dL (8.5-10.1); Eosinophils % (manual) 0 (0-7); Metamyelocytes % 0; Potassium 4.3 mmol/L (3.5-5.1); Promyelocytes % 0; Reactive Lymphocytes 0
[2021-05-13 04:34] LABS: BUN/Creatinine Ratio 8.2
[2021-05-13 04:37] LABS: Bilirubin, Total 0.4 mg/dL (0.2-1.0); Total Protein 4.9 g/dL (6.4-8.2)
[2021-05-13] MEDS: PROPOFOL 100 ML IV SCH (05:26)
[2021-05-13] MEDS: fentaNYL Drip 2500mCg/250mlNS 250 ML IV SCH ×2 (06:31→18:23)
[2021-05-13 08:06] LABS: Band Neutrophils % (manual) 3; Lymphocytes % (manual) 8 (10.0-50.0); Monocytes % (manual) 3 (0-12); Myelocytes % 2
[2021-05-13] MEDS: PANTOPRAZOLE 40 MG/10 ML VIAL INJ IV SCH (09:36)
[2021-05-13] MEDS: DexAMETHasone SOD PHOS 10MG/1ML VIAL INJ IV SCH (09:36)
[2021-05-13] MEDS: MULTIPLE VITAMIN TAB PO SCH (09:36)
[2021-05-13] MEDS: CHOLECALCIFEROL (VITD3) 2,000 UNIT CAP/TAB PO SCH (09:36)
[2021-05-13] MEDS: Pro-Stat SF 30ml Vanilla GT SCH ×2 (09:37→22:00)
[2021-05-13] MEDS: BUDESONIDE (INHALATION) 0.5 MG/2 ML NEB NEB SCH ×2 (10:00→18:20)
[2021-05-13] MEDS ORDERED: ALBUTEROL SULF 2.5 MG/0.5ML(0.5%) NEB SOLN NEB PRN (11:00)
[2021-05-13] MEDS: SODIUM FERR GLUC 62.5MG/5ML 125 MG in SODIUM CHL 0.9% 100 ML IV SCH (12:13)
[2021-05-13] MEDS: ACETYLCYSTEINE 20%(200MG/ML) SOL 4ML NEB SCH ×2 (13:57→18:19)
[2021-05-13] MEDS: MEROPENEM 500MG IVPB 50 ML IV SCH (17:58)
[2021-05-13] MEDS: ALBUTEROL SULF 2.5 MG/0.5ML(0.5%) NEB SOLN NEB SCH ×2 (18:19→22:08)
[2021-05-14] VITALS (103 sets, daily range): BP systolic 88–147; BP diastolic 38–83
[2021-05-14] MEDS: PROPOFOL 100 ML IV SCH ×4 (00:13→21:50)
[2021-05-14] MEDS: MIDAZOLAM DRIP 50 mg/50mL 50 ML IV SCH ×2 (00:14→16:19)
[2021-05-14] MEDS: ALBUTEROL SULF 2.5 MG/0.5ML(0.5%) NEB SOLN NEB SCH ×5 (02:05→22:25)
[2021-05-14] MEDS: ACETYLCYSTEINE 20%(200MG/ML) SOL 4ML NEB SCH ×5 (02:05→22:26)
[2021-05-14] MEDS: NOREPINEPHRINE 8 MG/250ML KIT 250 ML IV SCH ×3 (03:45→19:35)
[2021-05-14 04:35] LABS: Hemoglobin 9.4 g/dL (12.2-16.2)
[2021-05-14 04:38] LABS: Hematocrit 30.8 % (36.0-46.0); Mean Corpuscular Hgb Conc. 30.5 g/dL (32.0-36.0); Mean Corpuscular Volume 75.5 fL (80.0-100.0); Red Blood Cells 4.08 10^6/uL (4.0-5.20); White Blood Cell 12.8 10^3/uL (4.4-10.8)
[2021-05-14 04:56] LABS: Calcium 7.5 mg/dL (8.5-10.1); Potassium 4.6 mmol/L (3.5-5.1)
[2021-05-14 05:00] LABS: Albumin 2.1 g/dL (3.4-5.0); BUN/Creatinine Ratio 9.5
[2021-05-14 05:02] LABS: Bilirubin, Total 0.4 mg/dL (0.2-1.0); Total Protein 5.1 g/dL (6.4-8.2)
[2021-05-14 05:34] LABS: Basophils % (manual) 0 (0.0-2.0); Blast Cells 0; Eosinophils % (manual) 0 (0-7); Metamyelocytes % 0; Promyelocytes % 0; Reactive Lymphocytes 0
[2021-05-14] MEDS: fentaNYL Drip 2500mCg/250mlNS 250 ML IV SCH ×2 (05:53→18:15)
[2021-05-14 06:54] LABS: Band Neutrophils % (manual) 9; Lymphocytes % (manual) 4 (10.0-50.0); Monocytes % (manual) 4 (0-12); Myelocytes % 3
[2021-05-14] MEDS: BUDESONIDE (INHALATION) 0.5 MG/2 ML NEB NEB SCH ×2 (06:55→22:24)
[2021-05-14] MEDS: DexAMETHasone SOD PHOS 10MG/1ML VIAL INJ IV SCH (09:57)
[2021-05-14] MEDS: Pro-Stat SF 30ml Vanilla GT SCH ×2 (09:57→21:56)
[2021-05-14] MEDS: PANTOPRAZOLE 40 MG/10 ML VIAL INJ IV SCH (09:58)
[2021-05-14] MEDS: MULTIPLE VITAMIN TAB PO SCH (09:58)
[2021-05-14] MEDS: CHOLECALCIFEROL (VITD3) 2,000 UNIT CAP/TAB PO SCH (09:58)
[2021-05-14] MEDS: SODIUM FERR GLUC 62.5MG/5ML 125 MG in SODIUM CHL 0.9% 100 ML IV SCH (12:00)
[2021-05-14] MEDS ORDERED: LIDOCAINE 1% (LOCAL ANESTH.) PF 5ml SDV ID ONE (12:15)
[2021-05-14 15:40] LABS: INR 0.9 (0.9-1.15)
[2021-05-14] MEDS: MEROPENEM 500MG IVPB 50 ML IV SCH (18:11)
[2021-05-14] MEDS: ALBUMIN 25% 100 ML IV SCH ×2 (18:20→19:35)
[2021-05-14] MEDS ORDERED: EPOETIN ALFA-EPBX 4,000 UNIT/ML VIAL SC ONE (21:00)
[2021-05-14] MEDS: SODIUM CHLOR 0.9% PF (SALINE LOCK) 10ML VIAL/SYR IV SCH (21:56)
[2021-05-15] VITALS (107 sets, daily range): BP systolic 80–130; BP diastolic 43–76
[2021-05-15] MEDS: PROPOFOL 100 ML IV SCH ×3 (01:30→17:56)
[2021-05-15] MEDS: ACETYLCYSTEINE 20%(200MG/ML) SOL 4ML NEB SCH ×4 (02:19→18:33)
[2021-05-15] MEDS: ALBUTEROL SULF 2.5 MG/0.5ML(0.5%) NEB SOLN NEB SCH ×6 (02:19→22:12)
[2021-05-15] MEDS: MIDAZOLAM DRIP 50 mg/50mL 50 ML IV SCH ×5 (02:47→17:56)
[2021-05-15] MEDS: fentaNYL Drip 2500mCg/250mlNS 250 ML IV SCH ×2 (06:15→17:57)
[2021-05-15] MEDS: BUDESONIDE (INHALATION) 0.5 MG/2 ML NEB NEB SCH ×2 (06:43→18:32)
[2021-05-15] MEDS: Pro-Stat SF 30ml Vanilla GT SCH ×2 (10:00→22:00)
[2021-05-15] MEDS: PANTOPRAZOLE 40 MG/10 ML VIAL INJ IV SCH (10:02)
[2021-05-15] MEDS: MULTIPLE VITAMIN TAB PO SCH (10:02)
[2021-05-15] MEDS: CHOLECALCIFEROL (VITD3) 2,000 UNIT CAP/TAB PO SCH (10:02)
[2021-05-15] MEDS: SODIUM CHLOR 0.9% PF (SALINE LOCK) 10ML VIAL/SYR IV SCH ×2 (10:02→22:34)
[2021-05-15 11:02] LABS: Basophils # (auto) 0.2 10 ^3/uL (0-0.2); Basophils % (auto) 2.1 % (0.0-2.0); Eosinophils # (auto) 0 10 ^3/uL (0-0.8); Eosinophils % (auto) 0.3 % (0.0-7.0); Hematocrit 29.3 % (36.0-46.0); Hemoglobin 8.9 g/dL (12.2-16.2); Lymphocytes # (auto) 0.6 10 ^3/uL (0.4-5.4); Lymphocytes % (auto) 6.1 % (10.0-50.0); Mean Corpuscular Hemoglobin 23.6 pg (28.0-32.0); Mean Corpuscular Hgb Conc. 30.4 g/dL (32.0-36.0); Monocytes # (auto) 0.8 10 ^3/uL (0-1.3); Monocytes % (auto) 7.4 % (0.0-12.0); Neutrophils # (auto) 8.8 10 ^3/uL (1.6-8.6); Neutrophils % (auto) 84.1 % (37.0-80.0); Nucleated Red Blood Cells % 0.1 %; Red Blood Cells 3.79 10^6/uL (4.0-5.20); White Blood Cell 10.4 10^3/uL (4.4-10.8)
[2021-05-15 11:03] LABS: Mean Corpuscular Volume 77.4 fL (80.0-100.0); Red Cell Distribution Width 34.3 % (11.8-14.3)
[2021-05-15 11:29] LABS: Potassium 4.2 mmol/L (3.5-5.1)
[2021-05-15 11:38] LABS: Albumin 2.4 g/dL (3.4-5.0); Bilirubin, Total 0.4 mg/dL (0.2-1.0); Calcium 7.6 mg/dL (8.5-10.1); Total Protein 5.1 g/dL (6.4-8.2)
[2021-05-15] MEDS: SODIUM FERR GLUC 62.5MG/5ML 125 MG in SODIUM CHL 0.9% 100 ML IV SCH (12:00)
[2021-05-15] MEDS: NOREPINEPHRINE 8 MG/250ML KIT 250 ML IV SCH (17:55)
[2021-05-15] MEDS: MEROPENEM 500MG IVPB 50 ML IV SCH (18:09)
[2021-05-15] MEDS ORDERED: ACETYLCYSTEINE 20%(200MG/ML) SOL 4ML NEB PRN (18:45)
[2021-05-16] VITALS (98 sets, daily range): BP systolic 87–112; BP diastolic 46–66
[2021-05-16] MEDS: ALBUTEROL SULF 2.5 MG/0.5ML(0.5%) NEB SOLN NEB SCH ×6 (02:27→22:06)
[2021-05-16 04:53] LABS: Albumin 2.2 g/dL (3.4-5.0); Calcium 7.4 mg/dL (8.5-10.1); Potassium 4.5 mmol/L (3.5-5.1)
[2021-05-16 04:56] LABS: BUN/Creatinine Ratio 10.3; Bilirubin, Total 0.5 mg/dL (0.2-1.0); Total Protein 5.4 g/dL (6.4-8.2)
[2021-05-16 07:53] LABS: Hemoglobin 8.8 g/dL (12.2-16.2)
[2021-05-16 07:55] LABS: Hematocrit 28.7 % (36.0-46.0); Mean Corpuscular Hemoglobin 23.6 pg (28.0-32.0); Mean Corpuscular Hgb Conc. 30.6 g/dL (32.0-36.0); Mean Corpuscular Volume 77.2 fL (80.0-100.0); Red Blood Cells 3.71 10^6/uL (4.0-5.20); Red Cell Distribution Width 35.3 % (11.8-14.3); White Blood Cell 15.8 10^3/uL (4.4-10.8)
[2021-05-16 07:59] LABS: Basophils % (manual) 0 (0.0-2.0); Blast Cells 0; Eosinophils % (manual) 0 (0-7); Promyelocytes % 0; Reactive Lymphocytes 0
[2021-05-16 09:17] LABS: Band Neutrophils % (manual) 6; Lymphocytes % (manual) 3 (10.0-50.0); Metamyelocytes % 1; Monocytes % (manual) 5 (0-12); Myelocytes % 1
[2021-05-16] MEDS: NOREPINEPHRINE 8 MG/250ML KIT 250 ML IV SCH ×2 (09:29→21:31)
[2021-05-16] MEDS: Pro-Stat SF 30ml Vanilla GT SCH ×2 (10:00→21:30)
[2021-05-16] MEDS: MULTIPLE VITAMIN TAB PO SCH (10:23)
[2021-05-16] MEDS: PANTOPRAZOLE 40 MG/10 ML VIAL INJ IV SCH (10:23)
[2021-05-16] MEDS: SODIUM CHLOR 0.9% PF (SALINE LOCK) 10ML VIAL/SYR IV SCH ×2 (10:26→21:31)
[2021-05-16] MEDS: CHOLECALCIFEROL (VITD3) 2,000 UNIT CAP/TAB PO SCH (10:26)
[2021-05-16] MEDS: SODIUM FERR GLUC 62.5MG/5ML 125 MG in SODIUM CHL 0.9% 100 ML IV SCH (12:00)
[2021-05-16] MEDS: BUDESONIDE (INHALATION) 0.5 MG/2 ML NEB NEB SCH ×2 (13:30→18:37)
[2021-05-16] MEDS: fentaNYL Drip 2500mCg/250mlNS 250 ML IV SCH (15:52)
[2021-05-16] MEDS: MEROPENEM 500MG IVPB 50 ML IV SCH (18:00)
[2021-05-16] MEDS: PROPOFOL 100 ML IV SCH ×2 (18:49→23:10)
[2021-05-16] MEDS: MIDAZOLAM DRIP 50 mg/50mL 50 ML IV SCH (20:00)
[2021-05-17] VITALS (95 sets, daily range): BP systolic 86–133; BP diastolic 45–73
[2021-05-17] MEDS: MIDAZOLAM DRIP 50 mg/50mL 50 ML IV SCH ×4 (00:20→18:22)
[2021-05-17] MEDS: ALBUTEROL SULF 2.5 MG/0.5ML(0.5%) NEB SOLN NEB SCH ×4 (01:58→22:05)
[2021-05-17 04:37] LABS: Eosinophils % (auto) 0.8 % (0.0-7.0)
[2021-05-17 04:40] LABS: Basophils # (auto) 0.1 10 ^3/uL (0-0.2); Basophils % (auto) 0.4 % (0.0-2.0); Eosinophils # (auto) 0.2 10 ^3/uL (0-0.8); Hematocrit 29.1 % (36.0-46.0); Hemoglobin 8.8 g/dL (12.2-16.2); Lymphocytes # (auto) 0.6 10 ^3/uL (0.4-5.4); Mean Corpuscular Hemoglobin 23.6 pg (28.0-32.0); Mean Corpuscular Hgb Conc. 30.3 g/dL (32.0-36.0); Mean Corpuscular Volume 77.8 fL (80.0-100.0); Monocytes # (auto) 1.1 10 ^3/uL (0-1.3); Monocytes % (auto) 5.8 % (0.0-12.0); Neutrophils # (auto) 16.7 10 ^3/uL (1.6-8.6); Red Blood Cells 3.73 10^6/uL (4.0-5.20); White Blood Cell 18.6 10^3/uL (4.4-10.8)
[2021-05-17 04:46] LABS: Red Cell Distribution Width 34.2 % (11.8-14.3)
[2021-05-17 04:54] LABS: Albumin 1.9 g/dL (3.4-5.0); Potassium 4.9 mmol/L (3.5-5.1)
[2021-05-17 04:59] LABS: Bilirubin, Total 0.5 mg/dL (0.2-1.0); Total Protein 4.7 g/dL (6.4-8.2)
[2021-05-17] MEDS: fentaNYL Drip 2500mCg/250mlNS 250 ML IV SCH ×2 (05:30→22:00)
[2021-05-17] MEDS: BUDESONIDE (INHALATION) 0.5 MG/2 ML NEB NEB SCH ×2 (06:30→22:05)
[2021-05-17] MEDS: NOREPINEPHRINE 8 MG/250ML KIT 250 ML IV SCH ×2 (09:00→18:21)
[2021-05-17] MEDS: PANTOPRAZOLE 40 MG/10 ML VIAL INJ IV SCH (09:04)
[2021-05-17] MEDS: Pro-Stat SF 30ml Vanilla GT SCH ×2 (09:05→22:00)
[2021-05-17] MEDS: SODIUM CHLOR 0.9% PF (SALINE LOCK) 10ML VIAL/SYR IV SCH ×2 (09:05→22:00)
[2021-05-17] MEDS: MULTIPLE VITAMIN TAB PO SCH (09:06)
[2021-05-17] MEDS: CHOLECALCIFEROL (VITD3) 2,000 UNIT CAP/TAB PO SCH (09:06)
[2021-05-17] MEDS: PROPOFOL 100 ML IV SCH ×2 (10:02→18:22)
[2021-05-17] MEDS: SODIUM FERR GLUC 62.5MG/5ML 125 MG in SODIUM CHL 0.9% 100 ML IV SCH (12:04)
[2021-05-17] MEDS ORDERED: ALBUMIN 25% 50 ML IV ONE ×2 (12:46→13:30)
[2021-05-17] MEDS: ACETYLCYSTEINE 20%(200MG/ML) SOL 4ML NEB PRN (14:29)
[2021-05-17] MEDS: MEROPENEM 500MG IVPB 50 ML IV SCH (17:43)
[2021-05-17] MEDS ORDERED: EPOETIN ALFA-EPBX 4,000 UNIT/ML VIAL SC ONE (21:00)
[2021-05-18] VITALS (98 sets, daily range): BP systolic 88–132; BP diastolic 44–72
[2021-05-18] MEDS: MIDAZOLAM DRIP 50 mg/50mL 50 ML IV SCH ×6 (00:10→23:45)
[2021-05-18] MEDS: ALBUTEROL SULF 2.5 MG/0.5ML(0.5%) NEB SOLN NEB SCH ×5 (00:59→22:24)
[2021-05-18] MEDS: NOREPINEPHRINE 8 MG/250ML KIT 250 ML IV SCH (03:26)
[2021-05-18 04:13] LABS: Red Blood Cells 3.47 10^6/uL (4.0-5.20)
[2021-05-18 04:18] LABS: Hematocrit 27.2 % (36.0-46.0); Hemoglobin 8.3 g/dL (12.2-16.2); Mean Corpuscular Hgb Conc. 30.6 g/dL (32.0-36.0); Mean Corpuscular Volume 78.3 fL (80.0-100.0); White Blood Cell 18.2 10^3/uL (4.4-10.8)
[2021-05-18 04:23] LABS: Red Cell Distribution Width 34.7 % (11.8-14.3)
[2021-05-18 04:26] LABS: Basophils % (manual) 0 (0.0-2.0); Blast Cells 0; Metamyelocytes % 0; Myelocytes % 0; Promyelocytes % 0; Reactive Lymphocytes 0
[2021-05-18 04:27] LABS: Albumin 1.7 g/dL (3.4-5.0); BUN/Creatinine Ratio 10.6; Calcium 6.8 mg/dL (8.5-10.1); Potassium 4.5 mmol/L (3.5-5.1)
[2021-05-18 04:30] LABS: Bilirubin, Total 0.4 mg/dL (0.2-1.0); Total Protein 4.4 g/dL (6.4-8.2)
[2021-05-18 05:42] LABS: Band Neutrophils % (manual) 16; Eosinophils % (manual) 2 (0-7); Lymphocytes % (manual) 3 (10.0-50.0); Monocytes % (manual) 4 (0-12)
[2021-05-18] MEDS: Pro-Stat SF 30ml Vanilla GT SCH ×2 (09:17→22:00)
[2021-05-18] MEDS: PANTOPRAZOLE 40 MG/10 ML VIAL INJ IV SCH (09:18)
[2021-05-18] MEDS: SODIUM CHLOR 0.9% PF (SALINE LOCK) 10ML VIAL/SYR IV SCH ×2 (09:18→22:00)
[2021-05-18] MEDS: MULTIPLE VITAMIN TAB PO SCH (09:18)
[2021-05-18] MEDS: CHOLECALCIFEROL (VITD3) 2,000 UNIT CAP/TAB PO SCH (09:19)
[2021-05-18] MEDS: BUDESONIDE (INHALATION) 0.5 MG/2 ML NEB NEB SCH ×2 (10:43→18:41)
[2021-05-18] MEDS: SODIUM FERR GLUC 62.5MG/5ML 125 MG in SODIUM CHL 0.9% 100 ML IV SCH (11:06)
[2021-05-18] MEDS: fentaNYL Drip 2500mCg/250mlNS 250 ML IV SCH (13:49)
[2021-05-18] MEDS: MEROPENEM 500MG IVPB 50 ML IV SCH (18:12)
[2021-05-18] MEDS: PROPOFOL 100 ML IV SCH (18:19)
[2021-05-19] VITALS (99 sets, daily range): BP systolic 97–185; BP diastolic 49–97
[2021-05-19 03:39] LABS: Hematocrit 25.7 % (36.0-46.0); Mean Corpuscular Hemoglobin 23.7 pg (28.0-32.0); Mean Corpuscular Hgb Conc. 30.2 g/dL (32.0-36.0); White Blood Cell 16.5 10^3/uL (4.4-10.8)
[2021-05-19 03:41] LABS: Hemoglobin 7.8 g/dL (12.2-16.2); Mean Corpuscular Volume 78.6 fL (80.0-100.0); Red Blood Cells 3.27 10^6/uL (4.0-5.20)
[2021-05-19] MEDS: NOREPINEPHRINE 8 MG/250ML KIT 250 ML IV SCH ×2 (03:45→21:44)
[2021-05-19 03:57] LABS: Red Cell Distribution Width 34.4 % (11.8-14.3)
[2021-05-19 03:59] LABS: Basophils % (manual) 0 (0.0-2.0); Blast Cells 0; Metamyelocytes % 0; Myelocytes % 0; Promyelocytes % 0; Reactive Lymphocytes 0
[2021-05-19 04:05] LABS: Albumin 1.5 g/dL (3.4-5.0); BUN/Creatinine Ratio 11.3; Calcium 6.8 mg/dL (8.5-10.1); Potassium 4.4 mmol/L (3.5-5.1)
[2021-05-19 04:08] LABS: Bilirubin, Total 0.5 mg/dL (0.2-1.0); Total Protein 4.3 g/dL (6.4-8.2)
[2021-05-19 05:54] LABS: Band Neutrophils % (manual) 18; Eosinophils % (manual) 2 (0-7); Lymphocytes % (manual) 4 (10.0-50.0); Monocytes % (manual) 7 (0-12)
[2021-05-19] MEDS: BUDESONIDE (INHALATION) 0.5 MG/2 ML NEB NEB SCH ×2 (10:00→21:55)
[2021-05-19] MEDS: Pro-Stat SF 30ml Vanilla GT SCH ×2 (10:00→21:52)
[2021-05-19] MEDS: PANTOPRAZOLE 40 MG/10 ML VIAL INJ IV SCH (10:09)
[2021-05-19] MEDS: SODIUM CHLOR 0.9% PF (SALINE LOCK) 10ML VIAL/SYR IV SCH ×2 (10:09→21:52)
[2021-05-19] MEDS: CHOLECALCIFEROL (VITD3) 2,000 UNIT CAP/TAB PO SCH (10:09)
[2021-05-19] MEDS: MULTIPLE VITAMIN TAB PO SCH (10:09)
[2021-05-19] MEDS: MIDAZOLAM DRIP 50 mg/50mL 50 ML IV SCH ×2 (10:10→22:56)
[2021-05-19] MEDS: SODIUM FERR GLUC 62.5MG/5ML 125 MG in SODIUM CHL 0.9% 100 ML IV SCH (13:00)
[2021-05-19] MEDS: fentaNYL Drip 2500mCg/250mlNS 250 ML IV SCH (15:00)
[2021-05-19] MEDS: PROPOFOL 100 ML IV SCH (16:22)
[2021-05-19] MEDS: MEROPENEM 500MG IVPB 50 ML IV SCH (18:37)
[2021-05-19] MEDS ORDERED: EPOETIN ALFA-EPBX 4,000 UNIT/ML VIAL SC ONE (21:00)
[2021-05-19] MEDS: ALBUTEROL SULF 2.5 MG/0.5ML(0.5%) NEB SOLN NEB PRN (21:55)
[2021-05-20] VITALS (99 sets, daily range): BP systolic 89–136; BP diastolic 50–79
[2021-05-20] MEDS: ACETYLCYSTEINE 20%(200MG/ML) SOL 4ML NEB PRN ×2 (01:51→06:54)
[2021-05-20] MEDS: ALBUTEROL SULF 2.5 MG/0.5ML(0.5%) NEB SOLN NEB PRN ×3 (01:51→22:15)
[2021-05-20] MEDS: MIDAZOLAM DRIP 50 mg/50mL 50 ML IV SCH ×2 (02:39→16:00)
[2021-05-20 04:43] LABS: Hemoglobin 7.8 g/dL (12.2-16.2); Red Blood Cells 3.19 10^6/uL (4.0-5.20)
[2021-05-20 04:46] LABS: Hematocrit 25.5 % (36.0-46.0); Mean Corpuscular Hemoglobin 24.3 pg (28.0-32.0); Mean Corpuscular Hgb Conc. 30.4 g/dL (32.0-36.0); Mean Corpuscular Volume 79.9 fL (80.0-100.0); White Blood Cell 14.5 10^3/uL (4.4-10.8)
[2021-05-20 05:02] LABS: Calcium 7.2 mg/dL (8.5-10.1); Potassium 4.6 mmol/L (3.5-5.1)
[2021-05-20 05:04] LABS: Red Cell Distribution Width 33.5 % (11.8-14.3)
[2021-05-20 05:05] LABS: Basophils % (manual) 0 (0.0-2.0); Blast Cells 0; Lymphocytes % (manual) 0 (10.0-50.0); Metamyelocytes % 0; Myelocytes % 0; Promyelocytes % 0; Reactive Lymphocytes 0
[2021-05-20] MEDS ORDERED: HEPARIN 1,000 UNITS/ml 1ML VIAL ONE (06:25)
[2021-05-20] MEDS: fentaNYL Drip 2500mCg/250mlNS 250 ML IV SCH (06:31)
[2021-05-20 06:52] LABS: Band Neutrophils % (manual) 13; Eosinophils % (manual) 1 (0-7); Monocytes % (manual) 5 (0-12)
[2021-05-20] MEDS: BUDESONIDE (INHALATION) 0.5 MG/2 ML NEB NEB SCH ×2 (06:54→22:15)
[2021-05-20] MEDS: Pro-Stat SF 30ml Vanilla GT SCH ×2 (09:30→21:31)
[2021-05-20] MEDS: MULTIPLE VITAMIN TAB PO SCH (09:31)
[2021-05-20] MEDS: CHOLECALCIFEROL (VITD3) 2,000 UNIT CAP/TAB PO SCH (09:31)
[2021-05-20] MEDS: SODIUM CHLOR 0.9% PF (SALINE LOCK) 10ML VIAL/SYR IV SCH ×2 (09:31→21:31)
[2021-05-20] MEDS: PROPOFOL 100 ML IV SCH (09:31)
[2021-05-20] MEDS: PANTOPRAZOLE 40 MG/10 ML VIAL INJ IV SCH (09:31)
[2021-05-20] MEDS ORDERED: levoFLOXacin 250 MG TAB GT ONE (10:00)
[2021-05-20] MEDS: SODIUM FERR GLUC 62.5MG/5ML 125 MG in SODIUM CHL 0.9% 100 ML IV SCH (13:33)
[2021-05-21] VITALS (97 sets, daily range): BP systolic 78–143; BP diastolic 46–87
[2021-05-21] MEDS: NOREPINEPHRINE 8 MG/250ML KIT 250 ML IV SCH (03:45)
[2021-05-21 05:10] LABS: Eosinophils # (auto) 0.4 10 ^3/uL (0-0.8); Hemoglobin 8.1 g/dL (12.2-16.2); Monocytes # (auto) 0.6 10 ^3/uL (0-1.3)
[2021-05-21 05:12] LABS: Basophils # (auto) 0.1 10 ^3/uL (0-0.2); Basophils % (auto) 0.8 % (0.0-2.0); Eosinophils % (auto) 3.2 % (0.0-7.0); Hematocrit 26.4 % (36.0-46.0); Lymphocytes # (auto) 0.4 10 ^3/uL (0.4-5.4); Lymphocytes % (auto) 2.5 % (10.0-50.0); Mean Corpuscular Hemoglobin 24.7 pg (28.0-32.0); Mean Corpuscular Hgb Conc. 30.8 g/dL (32.0-36.0); Mean Corpuscular Volume 80.2 fL (80.0-100.0); Monocytes % (auto) 3.9 % (0.0-12.0); Neutrophils # (auto) 12.8 10 ^3/uL (1.6-8.6); Neutrophils % (auto) 89.6 % (37.0-80.0); Red Blood Cells 3.29 10^6/uL (4.0-5.20); White Blood Cell 14.2 10^3/uL (4.4-10.8)
[2021-05-21 05:21] LABS: Red Cell Distribution Width 32.4 % (11.8-14.3)
[2021-05-21 05:29] LABS: BUN/Creatinine Ratio 12.5
[2021-05-21 05:30] LABS: Calcium 7.4 mg/dL (8.5-10.1); Magnesium 3.6 mg/dL (1.6-2.6)
[2021-05-21] MEDS: ALBUTEROL SULF 2.5 MG/0.5ML(0.5%) NEB SOLN NEB PRN (07:20)
[2021-05-21] MEDS: BUDESONIDE (INHALATION) 0.5 MG/2 ML NEB NEB SCH (07:20)
[2021-05-21] MEDS: CHOLECALCIFEROL (VITD3) 2,000 UNIT CAP/TAB PO SCH (10:00)
[2021-05-21] MEDS: Pro-Stat SF 30ml Vanilla GT SCH ×2 (10:00→22:00)
[2021-05-21] MEDS: MIDAZOLAM DRIP 50 mg/50mL 50 ML IV SCH ×3 (10:55→21:20)
[2021-05-21] MEDS: PANTOPRAZOLE 40 MG/10 ML VIAL INJ IV SCH (11:47)
[2021-05-21] MEDS: levoFLOXacin 500 MG TAB GT SCH (11:48)
[2021-05-21] MEDS: MULTIPLE VITAMIN TAB PO SCH (11:48)
[2021-05-21] MEDS: SODIUM CHLOR 0.9% PF (SALINE LOCK) 10ML VIAL/SYR IV SCH ×2 (11:48→22:00)
[2021-05-21] MEDS: SODIUM FERR GLUC 62.5MG/5ML 125 MG in SODIUM CHL 0.9% 100 ML IV SCH (13:18)
[2021-05-21] MEDS: fentaNYL Drip 2500mCg/250mlNS 250 ML IV SCH (17:00)
[2021-05-21] MEDS: PROPOFOL 100 ML IV SCH (18:30)
[2021-05-21] MEDS ORDERED: EPOETIN ALFA-EPBX 4,000 UNIT/ML VIAL SC ONE (21:00)
[2021-05-22] VITALS (96 sets, daily range): BP systolic 97–146; BP diastolic 61–83
[2021-05-22] MEDS: MIDAZOLAM DRIP 50 mg/50mL 50 ML IV SCH ×2 (02:38→14:33)
[2021-05-22] MEDS: fentaNYL Drip 2500mCg/250mlNS 250 ML IV SCH ×2 (03:23→15:09)
[2021-05-22 05:31] LABS: Eosinophils # (auto) 0.7 10 ^3/uL (0-0.8); Hemoglobin 7.3 g/dL (12.2-16.2); Lymphocytes # (auto) 0.5 10 ^3/uL (0.4-5.4); Monocytes # (auto) 0.8 10 ^3/uL (0-1.3)
[2021-05-22 05:34] LABS: Basophils # (auto) 0 10 ^3/uL (0-0.2); Basophils % (auto) 0.4 % (0.0-2.0); Eosinophils % (auto) 5.9 % (0.0-7.0); Hematocrit 24.2 % (36.0-46.0); Mean Corpuscular Hemoglobin 24.3 pg (28.0-32.0); Mean Corpuscular Hgb Conc. 30.3 g/dL (32.0-36.0); Mean Corpuscular Volume 80.2 fL (80.0-100.0); Monocytes % (auto) 6.2 % (0.0-12.0); Neutrophils # (auto) 10.5 10 ^3/uL (1.6-8.6); Neutrophils % (auto) 83.5 % (37.0-80.0); Nucleated Red Blood Cells % 0.1 %; Red Blood Cells 3.01 10^6/uL (4.0-5.20); White Blood Cell 12.5 10^3/uL (4.4-10.8)
[2021-05-22 05:37] LABS: Red Cell Distribution Width 32.8 % (11.8-14.3)
[2021-05-22 05:52] LABS: Potassium 4.5 mmol/L (3.5-5.1)
[2021-05-22 05:57] LABS: BUN/Creatinine Ratio 12.6; Calcium 7.3 mg/dL (8.5-10.1)
[2021-05-22] MEDS: BUDESONIDE (INHALATION) 0.5 MG/2 ML NEB NEB SCH ×3 (06:04→22:20)
[2021-05-22] MEDS: ACETYLCYSTEINE 20%(200MG/ML) SOL 4ML NEB PRN ×2 (06:23→22:20)
[2021-05-22] MEDS: ALBUTEROL SULF 2.5 MG/0.5ML(0.5%) NEB SOLN NEB PRN ×2 (06:24→22:20)
[2021-05-22] MEDS: NOREPINEPHRINE 8 MG/250ML KIT 250 ML IV SCH (06:58)
[2021-05-22] MEDS: CHOLECALCIFEROL (VITD3) 2,000 UNIT CAP/TAB PO SCH (09:46)
[2021-05-22] MEDS: PANTOPRAZOLE 40 MG/10 ML VIAL INJ IV SCH (09:46)
[2021-05-22] MEDS: MULTIPLE VITAMIN TAB PO SCH (09:46)
[2021-05-22] MEDS: SODIUM CHLOR 0.9% PF (SALINE LOCK) 10ML VIAL/SYR IV SCH ×2 (09:47→21:07)
[2021-05-22] MEDS: Pro-Stat SF 30ml Vanilla GT SCH ×2 (09:47→21:06)
[2021-05-22] MEDS: SODIUM FERR GLUC 62.5MG/5ML 125 MG in SODIUM CHL 0.9% 100 ML IV SCH (11:55)
[2021-05-22] MEDS: PROPOFOL 100 ML IV SCH (18:30)
[2021-05-22] MEDS ORDERED: ARIPIPRAZOLE 20 MG PO SCH (22:00)
[2021-05-23] VITALS (106 sets, daily range): BP systolic 96–136; BP diastolic 55–99
[2021-05-23] MEDS: NOREPINEPHRINE 8 MG/250ML KIT 250 ML IV SCH (03:45)
[2021-05-23 04:23] LABS: Eosinophils # (auto) 0.7 10 ^3/uL (0-0.8); Mean Corpuscular Volume 81.2 fL (80.0-100.0)
[2021-05-23 04:25] LABS: Basophils # (auto) 0.1 10 ^3/uL (0-0.2); Basophils % (auto) 0.9 % (0.0-2.0); Calcium 7.2 mg/dL (8.5-10.1); Hematocrit 21.9 % (36.0-46.0); Lymphocytes # (auto) 0.7 10 ^3/uL (0.4-5.4); Lymphocytes % (auto) 5.6 % (10.0-50.0); Mean Corpuscular Hemoglobin 24.6 pg (28.0-32.0); Mean Corpuscular Hgb Conc. 30.2 g/dL (32.0-36.0); Monocytes # (auto) 0.4 10 ^3/uL (0-1.3); Monocytes % (auto) 3.2 % (0.0-12.0); Neutrophils # (auto) 10.1 10 ^3/uL (1.6-8.6); Neutrophils % (auto) 84.3 % (37.0-80.0); Potassium 4.8 mmol/L (3.5-5.1)
[2021-05-23 04:28] LABS: BUN/Creatinine Ratio 12.7
[2021-05-23 05:32] LABS: Hemoglobin 6.6 g/dL (12.2-16.2); Red Cell Distribution Width 31.9 % (11.8-14.3)
[2021-05-23] MEDS: BUDESONIDE (INHALATION) 0.5 MG/2 ML NEB NEB SCH ×2 (06:20→21:52)
[2021-05-23] MEDS: ACETYLCYSTEINE 20%(200MG/ML) SOL 4ML NEB PRN ×2 (06:21→21:53)
[2021-05-23] MEDS: ALBUTEROL SULF 2.5 MG/0.5ML(0.5%) NEB SOLN NEB PRN ×2 (06:21→21:52)
[2021-05-23] MEDS: Pro-Stat SF 30ml Vanilla GT SCH ×2 (10:00→22:00)
[2021-05-23] MEDS: CHOLECALCIFEROL (VITD3) 2,000 UNIT CAP/TAB PO SCH (10:00)
[2021-05-23] MEDS: SODIUM CHLOR 0.9% PF (SALINE LOCK) 10ML VIAL/SYR IV SCH ×2 (10:00→22:00)
[2021-05-23] MEDS: MULTIPLE VITAMIN TAB PO SCH ×2 (10:00→13:18)
[2021-05-23] MEDS: HALOPERIDOL 1 MG TAB PO SCH ×2 (11:15→22:40)
[2021-05-23] MEDS: fentaNYL Drip 2500mCg/250mlNS 250 ML IV SCH (11:17)
[2021-05-23] MEDS: levoFLOXacin 500 MG TAB GT SCH (13:18)
[2021-05-23] MEDS: PANTOPRAZOLE 40 MG/10 ML VIAL INJ IV SCH (13:19)
[2021-05-23] MEDS: SODIUM FERR GLUC 62.5MG/5ML 125 MG in SODIUM CHL 0.9% 100 ML IV SCH (13:25)
[2021-05-23] MEDS: PROPOFOL 100 ML IV SCH (18:30)
[2021-05-24] VITALS (104 sets, daily range): BP systolic 70–140; BP diastolic 39–86
[2021-05-24] MEDS: NOREPINEPHRINE 8 MG/250ML KIT 250 ML IV SCH (03:45)
[2021-05-24] MEDS: MIDAZOLAM DRIP 50 mg/50mL 50 ML IV SCH (03:45)
[2021-05-24 04:57] LABS: Hemoglobin 7.8 g/dL (12.2-16.2); Mean Corpuscular Hemoglobin 25.1 pg (28.0-32.0)
[2021-05-24 05:00] LABS: Mean Corpuscular Hgb Conc. 31.2 g/dL (32.0-36.0); Mean Corpuscular Volume 80.3 fL (80.0-100.0); Red Blood Cells 3.11 10^6/uL (4.0-5.20)
[2021-05-24 05:21] LABS: Calcium 7.1 mg/dL (8.5-10.1); Potassium 5.2 mmol/L (3.5-5.1)
[2021-05-24 05:23] LABS: BUN/Creatinine Ratio 12.5
[2021-05-24 05:27] LABS: Red Cell Distribution Width 29.7 % (11.8-14.3)
[2021-05-24 05:29] LABS: Basophils % (manual) 0 (0.0-2.0); Blast Cells 0; Metamyelocytes % 0; Promyelocytes % 0; Reactive Lymphocytes 0
[2021-05-24] MEDS: ALBUTEROL SULF 2.5 MG/0.5ML(0.5%) NEB SOLN NEB PRN ×3 (05:45→22:30)
[2021-05-24] MEDS: ACETYLCYSTEINE 20%(200MG/ML) SOL 4ML NEB PRN ×3 (05:45→22:30)
[2021-05-24] MEDS: BUDESONIDE (INHALATION) 0.5 MG/2 ML NEB NEB SCH ×2 (05:45→22:30)
[2021-05-24 07:21] LABS: Band Neutrophils % (manual) 14; Eosinophils % (manual) 3 (0-7); Lymphocytes % (manual) 4 (10.0-50.0); Monocytes % (manual) 3 (0-12); Myelocytes % 2
[2021-05-24] MEDS ORDERED: ALBUMIN 25% 100 ML IV PRN (09:15)
[2021-05-24] MEDS: SODIUM CHLOR 0.9% PF (SALINE LOCK) 10ML VIAL/SYR IV SCH ×2 (10:00→22:05)
[2021-05-24] MEDS: HALOPERIDOL 1 MG TAB PO SCH ×2 (10:00→22:43)
[2021-05-24] MEDS: PANTOPRAZOLE 40 MG/10 ML VIAL INJ IV SCH (10:00)
[2021-05-24] MEDS: CHOLECALCIFEROL (VITD3) 2,000 UNIT CAP/TAB PO SCH (10:00)
[2021-05-24] MEDS: MULTIPLE VITAMIN TAB PO SCH (10:00)
[2021-05-24] MEDS: Pro-Stat SF 30ml Vanilla GT SCH ×2 (10:00→22:00)
[2021-05-24] MEDS: SODIUM FERR GLUC 62.5MG/5ML 125 MG in SODIUM CHL 0.9% 100 ML IV SCH (12:00)
[2021-05-24] MEDS: fentaNYL Drip 2500mCg/250mlNS 250 ML IV SCH (16:32)
[2021-05-24] MEDS: PROPOFOL 100 ML IV SCH (16:33)
[2021-05-24] MEDS: QUEtiapine FUMARATE 25 MG TAB GT SCH (22:42)
[2021-05-25] VITALS (101 sets, daily range): BP systolic 97–147; BP diastolic 56–88
[2021-05-25] MEDS: MIDAZOLAM DRIP 50 mg/50mL 50 ML IV SCH ×2 (00:18→17:42)
[2021-05-25] MEDS: NOREPINEPHRINE 8 MG/250ML KIT 250 ML IV SCH (03:45)
[2021-05-25 06:05] LABS: Calcium 7.2 mg/dL (8.5-10.1); Potassium 4.5 mmol/L (3.5-5.1)
[2021-05-25 06:07] LABS: BUN/Creatinine Ratio 11.5
[2021-05-25] MEDS: ACETYLCYSTEINE 20%(200MG/ML) SOL 4ML NEB PRN ×2 (06:29→18:35)
[2021-05-25] MEDS: ALBUTEROL SULF 2.5 MG/0.5ML(0.5%) NEB SOLN NEB PRN ×2 (06:29→18:35)
[2021-05-25] MEDS: BUDESONIDE (INHALATION) 0.5 MG/2 ML NEB NEB SCH ×2 (06:29→18:35)
[2021-05-25 06:54] LABS: Hemoglobin 7.6 g/dL (12.2-16.2); Mean Corpuscular Hemoglobin 25.8 pg (28.0-32.0)
[2021-05-25 06:57] LABS: Hematocrit 23.7 % (36.0-46.0); Mean Corpuscular Hgb Conc. 31.8 g/dL (32.0-36.0); Mean Corpuscular Volume 81.1 fL (80.0-100.0); Red Blood Cells 2.93 10^6/uL (4.0-5.20); White Blood Cell 9.5 10^3/uL (4.4-10.8)
[2021-05-25 07:06] LABS: Basophils % (manual) 0 (0.0-2.0); Blast Cells 0; Metamyelocytes % 0; Myelocytes % 0; Promyelocytes % 0; Reactive Lymphocytes 0; Red Cell Distribution Width 29.6 % (11.8-14.3)
[2021-05-25 08:24] LABS: Band Neutrophils % (manual) 3; Eosinophils % (manual) 11 (0-7); Lymphocytes % (manual) 12 (10.0-50.0); Monocytes % (manual) 1 (0-12)
[2021-05-25] MEDS: Pro-Stat SF 30ml Vanilla GT SCH ×2 (09:28→21:39)
[2021-05-25] MEDS: levoFLOXacin 500 MG TAB GT SCH (09:28)
[2021-05-25] MEDS: CHOLECALCIFEROL (VITD3) 2,000 UNIT CAP/TAB PO SCH (09:28)
[2021-05-25] MEDS: SODIUM CHLOR 0.9% PF (SALINE LOCK) 10ML VIAL/SYR IV SCH ×2 (09:28→21:39)
[2021-05-25] MEDS: PANTOPRAZOLE 40 MG/10 ML VIAL INJ IV SCH (09:28)
[2021-05-25] MEDS: HALOPERIDOL 1 MG TAB PO SCH (09:28)
[2021-05-25] MEDS: MULTIPLE VITAMIN TAB PO SCH (09:28)
[2021-05-25] MEDS: SODIUM FERR GLUC 62.5MG/5ML 125 MG in SODIUM CHL 0.9% 100 ML IV SCH (13:00)
[2021-05-25] MEDS: fentaNYL Drip 2500mCg/250mlNS 250 ML IV SCH (16:57)
[2021-05-25] MEDS: PROPOFOL 100 ML IV SCH (16:58)
[2021-05-25] MEDS ORDERED: HALOPERIDOL LACTATE 5 MG/ML INJ VIAL IM PRN (20:15)
[2021-05-25] MEDS: QUEtiapine FUMARATE 25 MG TAB GT SCH (21:39)
[2021-05-26] VITALS (92 sets, daily range): BP systolic 107–152; BP diastolic 63–96
[2021-05-26 06:10] LABS: BUN/Creatinine Ratio 12.2; Calcium 7.1 mg/dL (8.5-10.1); Potassium 4.3 mmol/L (3.5-5.1)
[2021-05-26] MEDS: BUDESONIDE (INHALATION) 0.5 MG/2 ML NEB NEB SCH ×2 (07:22→20:01)
[2021-05-26] MEDS: ALBUTEROL SULF 2.5 MG/0.5ML(0.5%) NEB SOLN NEB PRN ×2 (07:22→20:02)
[2021-05-26] MEDS: NOREPINEPHRINE 8 MG/250ML KIT 250 ML IV SCH (08:30)
[2021-05-26] MEDS: SODIUM CHLOR 0.9% PF (SALINE LOCK) 10ML VIAL/SYR IV SCH ×2 (11:23→22:13)
[2021-05-26] MEDS: PANTOPRAZOLE 40 MG/10 ML VIAL INJ IV SCH (11:23)
[2021-05-26] MEDS: MULTIPLE VITAMIN TAB PO SCH (11:58)
[2021-05-26] MEDS: CHOLECALCIFEROL (VITD3) 2,000 UNIT CAP/TAB PO SCH (11:58)
[2021-05-26] MEDS: Pro-Stat SF 30ml Vanilla GT SCH ×2 (15:47→22:12)
[2021-05-26] MEDS: PROPOFOL 100 ML IV SCH (18:30)
[2021-05-26] MEDS: fentaNYL Drip 2500mCg/250mlNS 250 ML IV SCH (18:30)
[2021-05-26] MEDS ORDERED: EPOETIN ALFA-EPBX 4,000 UNIT/ML VIAL SC ONE (21:00)
[2021-05-26] MEDS: QUEtiapine FUMARATE 25 MG TAB GT SCH (22:13)
[2021-05-27] VITALS (87 sets, daily range): BP systolic 102–140; BP diastolic 60–87
[2021-05-27] MEDS: NOREPINEPHRINE 8 MG/250ML KIT 250 ML IV SCH (03:42)
[2021-05-27] MEDS: MIDAZOLAM DRIP 50 mg/50mL 50 ML IV SCH ×2 (03:43→18:30)
[2021-05-27 04:54] LABS: Potassium 3.7 mmol/L (3.5-5.1)
[2021-05-27 05:01] LABS: Albumin 1.3 g/dL (3.4-5.0); BUN/Creatinine Ratio 11.1; Calcium 7.1 mg/dL (8.5-10.1)
[2021-05-27 05:02] LABS: Bilirubin, Total 0.4 mg/dL (0.2-1.0); Total Protein 4.4 g/dL (6.4-8.2)
[2021-05-27 06:02] LABS: CRP High Sensitivity 11.4 mg/dL (< 0.3)
[2021-05-27] MEDS: BUDESONIDE (INHALATION) 0.5 MG/2 ML NEB NEB SCH ×2 (06:28→19:17)
[2021-05-27] MEDS: ACETYLCYSTEINE 20%(200MG/ML) SOL 4ML NEB PRN ×3 (06:28→19:18)
[2021-05-27] MEDS: ALBUTEROL SULF 2.5 MG/0.5ML(0.5%) NEB SOLN NEB PRN ×3 (06:29→19:18)
[2021-05-27] MEDS: fentaNYL Drip 2500mCg/250mlNS 250 ML IV SCH (07:35)
[2021-05-27] MEDS: SODIUM CHLOR 0.9% PF (SALINE LOCK) 10ML VIAL/SYR IV SCH ×2 (09:43→21:48)
[2021-05-27] MEDS: MULTIPLE VITAMIN TAB PO SCH (09:43)
[2021-05-27] MEDS: PANTOPRAZOLE 40 MG/10 ML VIAL INJ IV SCH (09:43)
[2021-05-27] MEDS: CHOLECALCIFEROL (VITD3) 2,000 UNIT CAP/TAB PO SCH (09:43)
[2021-05-27] MEDS: Pro-Stat SF 30ml Vanilla GT SCH ×2 (09:44→21:47)
[2021-05-27] MEDS: levoFLOXacin 500 MG TAB GT SCH (09:54)
[2021-05-27] MEDS ORDERED: IBUPROFEN 100MG/5ML ORAL SUSP 100 MG/5 ML UD GT PRN (13:15)
[2021-05-27] MEDS: PROPOFOL 100 ML IV SCH (18:30)
[2021-05-27] MEDS: QUEtiapine FUMARATE 25 MG TAB GT SCH (21:48)
[2021-05-28] VITALS (61 sets, daily range): BP systolic 98–140; BP diastolic 56–80
[2021-05-28] MEDS: NOREPINEPHRINE 8 MG/250ML KIT 250 ML IV SCH (03:45)
[2021-05-28] MEDS: fentaNYL Drip 2500mCg/250mlNS 250 ML IV SCH ×2 (06:13→17:43)
[2021-05-28] MEDS: BUDESONIDE (INHALATION) 0.5 MG/2 ML NEB NEB SCH ×2 (06:14→18:58)
[2021-05-28 06:40] LABS: Hematocrit 22.8 % (36.0-46.0); Hemoglobin 7.5 g/dL (12.2-16.2); Mean Corpuscular Hemoglobin 26.8 pg (28.0-32.0); Mean Corpuscular Hgb Conc. 32.9 g/dL (32.0-36.0); Mean Corpuscular Volume 81.4 fL (80.0-100.0); Red Blood Cells 2.81 10^6/uL (4.0-5.20); White Blood Cell 7.5 10^3/uL (4.4-10.8)
[2021-05-28 06:53] LABS: Albumin 1.4 g/dL (3.4-5.0); Potassium 3.8 mmol/L (3.5-5.1)
[2021-05-28 06:56] LABS: BUN/Creatinine Ratio 12.4; Bilirubin, Total 0.4 mg/dL (0.2-1.0); Total Protein 4.5 g/dL (6.4-8.2)
[2021-05-28] MEDS ORDERED: SODIUM CHL 0.9% 1000 ML BAG XX ONE (07:00)
[2021-05-28] MEDS: MIDAZOLAM DRIP 50 mg/50mL 50 ML IV SCH ×2 (07:00→12:18)
[2021-05-28 07:57] LABS: Red Cell Distribution Width 27.7 % (11.8-14.3)
[2021-05-28 07:59] LABS: Basophils % (manual) 0 (0.0-2.0); Blast Cells 0; Metamyelocytes % 0; Myelocytes % 0; Promyelocytes % 0; Reactive Lymphocytes 0
[2021-05-28 09:32] LABS: Band Neutrophils % (manual) 4; Eosinophils % (manual) 6 (0-7); Lymphocytes % (manual) 9 (10.0-50.0); Monocytes % (manual) 3 (0-12)
[2021-05-28] MEDS: PANTOPRAZOLE 40 MG/10 ML VIAL INJ IV SCH (09:48)
[2021-05-28] MEDS: CHOLECALCIFEROL (VITD3) 2,000 UNIT CAP/TAB PO SCH (09:48)
[2021-05-28] MEDS: SODIUM CHLOR 0.9% PF (SALINE LOCK) 10ML VIAL/SYR IV SCH ×2 (09:48→22:48)
[2021-05-28] MEDS: Pro-Stat SF 30ml Vanilla GT SCH ×2 (09:48→22:47)
[2021-05-28] MEDS: ALBUMIN 25% 100 ML IV SCH ×2 (11:04→12:03)
[2021-05-28] MEDS: PROPOFOL 100 ML IV SCH (18:30)
[2021-05-28] MEDS: ALBUTEROL SULF 2.5 MG/0.5ML(0.5%) NEB SOLN NEB PRN (18:58)
[2021-05-28] MEDS: ACETYLCYSTEINE 20%(200MG/ML) SOL 4ML NEB PRN (18:59)
[2021-05-28] MEDS ORDERED: EPOETIN ALFA-EPBX 4,000 UNIT/ML VIAL SC ONE (21:00)
[2021-05-28] MEDS: QUEtiapine FUMARATE 25 MG TAB GT SCH (22:48)
[2021-05-29] VITALS (79 sets, daily range): BP systolic 113–144; BP diastolic 45–86
[2021-05-29] MEDS: ALBUTEROL SULF 2.5 MG/0.5ML(0.5%) NEB SOLN NEB PRN ×3 (06:09→18:14)
[2021-05-29] MEDS: BUDESONIDE (INHALATION) 0.5 MG/2 ML NEB NEB SCH ×2 (06:09→18:14)
[2021-05-29] MEDS: ACETYLCYSTEINE 20%(200MG/ML) SOL 4ML NEB PRN ×3 (06:09→18:15)
[2021-05-29] MEDS: NOREPINEPHRINE 8 MG/250ML KIT 250 ML IV SCH (07:00)
[2021-05-29] MEDS: Pro-Stat SF 30ml Vanilla GT SCH ×2 (10:34→22:20)
[2021-05-29] MEDS: levoFLOXacin 500 MG TAB GT SCH (10:34)
[2021-05-29] MEDS: PANTOPRAZOLE 40 MG/10 ML VIAL INJ IV SCH (10:34)
[2021-05-29] MEDS: SODIUM CHLOR 0.9% PF (SALINE LOCK) 10ML VIAL/SYR IV SCH ×2 (10:35→22:21)
[2021-05-29] MEDS: CHOLECALCIFEROL (VITD3) 2,000 UNIT CAP/TAB PO SCH (10:35)
[2021-05-29] MEDS ORDERED: BUMETANIDE 2.5mg/10ml (0.25 mg/ml) INJ IV ONE (17:45)
[2021-05-29] MEDS: NYSTATIN (MOUTH-THROAT) 500,000 UNITS/5 ML SUSP MT SCH ×2 (18:00→22:22)
[2021-05-29] MEDS ORDERED: MICAFUNGIN SODIUM 100 MG in SODIUM CHL 0.9% 100 ML IV ONE (18:00)
[2021-05-29] MEDS: fentaNYL Drip 2500mCg/250mlNS 250 ML IV SCH (18:30)
[2021-05-29] MEDS: PROPOFOL 100 ML IV SCH (18:30)
[2021-05-29 21:35] LABS: Potassium 3.7 mmol/L (3.5-5.1)
[2021-05-29 21:39] LABS: Albumin 1.7 g/dL (3.4-5.0); BUN/Creatinine Ratio 12.8; Bilirubin, Total 0.3 mg/dL (0.2-1.0); Calcium 7.3 mg/dL (8.5-10.1)
[2021-05-29] MEDS: QUEtiapine FUMARATE 25 MG TAB GT SCH (22:20)
[2021-05-30] VITALS (77 sets, daily range): BP systolic 104–149; BP diastolic 54–88
[2021-05-30 00:28] LABS: Basophils # (auto) 0 10 ^3/uL (0-0.2); Basophils % (auto) 0.7 % (0.0-2.0); Eosinophils # (auto) 0.4 10 ^3/uL (0-0.8); Eosinophils % (auto) 6.3 % (0.0-7.0); Hematocrit 21.7 % (36.0-46.0); Lymphocytes # (auto) 0.4 10 ^3/uL (0.4-5.4); Lymphocytes % (auto) 6.5 % (10.0-50.0); Mean Corpuscular Hemoglobin 26.1 pg (28.0-32.0); Mean Corpuscular Hgb Conc. 31.5 g/dL (32.0-36.0); Mean Corpuscular Volume 82.8 fL (80.0-100.0); Monocytes # (auto) 0.5 10 ^3/uL (0-1.3); Monocytes % (auto) 7.9 % (0.0-12.0); Neutrophils # (auto) 5.3 10 ^3/uL (1.6-8.6); Neutrophils % (auto) 78.6 % (37.0-80.0); Red Blood Cells 2.62 10^6/uL (4.0-5.20); White Blood Cell 6.8 10^3/uL (4.4-10.8)
[2021-05-30 00:31] LABS: Red Cell Distribution Width 27.4 % (11.8-14.3)
[2021-05-30 00:32] LABS: Hemoglobin 6.8 g/dL (12.2-16.2)
[2021-05-30] MEDS: fentaNYL Drip 2500mCg/250mlNS 250 ML IV SCH ×2 (01:24→22:08)
[2021-05-30] MEDS: ACETYLCYSTEINE 20%(200MG/ML) SOL 4ML NEB PRN (02:18)
[2021-05-30] MEDS: ALBUTEROL SULF 2.5 MG/0.5ML(0.5%) NEB SOLN NEB PRN ×2 (02:18→07:33)
[2021-05-30] MEDS: NOREPINEPHRINE 8 MG/250ML KIT 250 ML IV SCH (03:45)
[2021-05-30] MEDS: MIDAZOLAM DRIP 50 mg/50mL 50 ML IV SCH (03:45)
[2021-05-30 04:16] LABS: Basophils # (auto) 0 10 ^3/uL (0-0.2); Mean Corpuscular Volume 82.4 fL (80.0-100.0); Monocytes # (auto) 0.6 10 ^3/uL (0-1.3); Neutrophils # (auto) 5.7 10 ^3/uL (1.6-8.6); White Blood Cell 7.6 10^3/uL (4.4-10.8)
[2021-05-30 04:19] LABS: Basophils % (auto) 0.4 % (0.0-2.0); Eosinophils # (auto) 0.8 10 ^3/uL (0-0.8); Hematocrit 21.6 % (36.0-46.0); Lymphocytes # (auto) 0.4 10 ^3/uL (0.4-5.4); Lymphocytes % (auto) 5.5 % (10.0-50.0); Mean Corpuscular Hemoglobin 26.8 pg (28.0-32.0); Mean Corpuscular Hgb Conc. 32.5 g/dL (32.0-36.0); Monocytes % (auto) 8.5 % (0.0-12.0); Neutrophils % (auto) 75.6 % (37.0-80.0); Red Blood Cells 2.62 10^6/uL (4.0-5.20); Red Cell Distribution Width 27.3 % (11.8-14.3)
[2021-05-30 04:44] LABS: Calcium 7.5 mg/dL (8.5-10.1); Potassium 3.8 mmol/L (3.5-5.1)
[2021-05-30 04:47] LABS: BUN/Creatinine Ratio 12.8; INR 1.19 (0.9-1.15); Partial Thromboplastin Time 30.4 sec (23.6-33.0)
[2021-05-30] MEDS: NYSTATIN (MOUTH-THROAT) 500,000 UNITS/5 ML SUSP MT SCH ×4 (05:54→22:07)
[2021-05-30] MEDS: CHOLECALCIFEROL (VITD3) 2,000 UNIT CAP/TAB PO SCH (07:15)
[2021-05-30] MEDS: Pro-Stat SF 30ml Vanilla GT SCH ×2 (07:15→22:06)
[2021-05-30] MEDS: BUDESONIDE (INHALATION) 0.5 MG/2 ML NEB NEB SCH ×2 (07:55→22:06)
[2021-05-30] MEDS: SODIUM CHLOR 0.9% PF (SALINE LOCK) 10ML VIAL/SYR IV SCH ×2 (08:36→22:07)
[2021-05-30] MEDS: PANTOPRAZOLE 40 MG/10 ML VIAL INJ IV SCH (08:36)
[2021-05-30] MEDS: PROPOFOL 100 ML IV SCH (16:51)
[2021-05-30] MEDS: MICAFUNGIN SODIUM 100 MG in SODIUM CHL 0.9% 100 ML IV SCH (17:25)
[2021-05-30] MEDS: QUEtiapine FUMARATE 25 MG TAB GT SCH (22:07)
[2021-05-31] VITALS (86 sets, daily range): BP systolic 96–143; BP diastolic 54–94
[2021-05-31] MEDS: MIDAZOLAM DRIP 50 mg/50mL 50 ML IV SCH (03:45)
[2021-05-31] MEDS: NOREPINEPHRINE 8 MG/250ML KIT 250 ML IV SCH (03:45)
[2021-05-31 04:21] LABS: Basophils # (auto) 0 10 ^3/uL (0-0.2); Eosinophils % (auto) 12.2 % (0.0-7.0); Hematocrit 26.4 % (36.0-46.0); Hemoglobin 8.8 g/dL (12.2-16.2); Lymphocytes # (auto) 0.5 10 ^3/uL (0.4-5.4); Lymphocytes % (auto) 5.4 % (10.0-50.0); Mean Corpuscular Hgb Conc. 33.3 g/dL (32.0-36.0); Mean Corpuscular Volume 83.9 fL (80.0-100.0); Monocytes # (auto) 0.7 10 ^3/uL (0-1.3); Monocytes % (auto) 7.7 % (0.0-12.0); Neutrophils # (auto) 6.4 10 ^3/uL (1.6-8.6); Neutrophils % (auto) 74.7 % (37.0-80.0); Red Blood Cells 3.14 10^6/uL (4.0-5.20); White Blood Cell 8.5 10^3/uL (4.4-10.8)
[2021-05-31 04:42] LABS: Albumin 1.8 g/dL (3.4-5.0); Calcium 7.2 mg/dL (8.5-10.1); Potassium 4.5 mmol/L (3.5-5.1)
[2021-05-31 04:44] LABS: BUN/Creatinine Ratio 13.6
[2021-05-31 04:45] LABS: Bilirubin, Total 0.4 mg/dL (0.2-1.0); Total Protein 4.9 g/dL (6.4-8.2)
[2021-05-31 04:54] LABS: Red Cell Distribution Width 25.3 % (11.8-14.3)
[2021-05-31 05:20] LABS: INR 1.22 (0.9-1.15); Partial Thromboplastin Time 31.2 sec (23.6-33.0)
[2021-05-31] MEDS: NYSTATIN (MOUTH-THROAT) 500,000 UNITS/5 ML SUSP MT SCH ×4 (06:05→22:15)
[2021-05-31] MEDS: ALBUTEROL SULF 2.5 MG/0.5ML(0.5%) NEB SOLN NEB PRN (06:38)
[2021-05-31] MEDS: BUDESONIDE (INHALATION) 0.5 MG/2 ML NEB NEB SCH ×2 (06:38→22:17)
[2021-05-31] MEDS ORDERED: MIDAZOLAM HCL 2MG/2ML 2ml VIAL (1mg/ml) ONE (09:07)
[2021-05-31] MEDS ORDERED: HYDROmorphone HCL 2 MG/ML VL ONE ×2 (09:08→09:38)
[2021-05-31] MEDS ORDERED: fentaNYL CITRATE 100 MCG/2 ML VL ONE ×2 (09:08→09:57)
[2021-05-31] MEDS ORDERED: PROPOFOL 10 MG/ML 20 ML IV ONE (09:32)
[2021-05-31] MEDS ORDERED: SODIUM CHL 0.9% 1000 ML BAG XX ONE (09:45)
[2021-05-31] MEDS: SODIUM CHLOR 0.9% PF (SALINE LOCK) 10ML VIAL/SYR IV SCH ×2 (09:59→22:15)
[2021-05-31] MEDS: levoFLOXacin 500 MG TAB GT SCH (09:59)
[2021-05-31] MEDS: Pro-Stat SF 30ml Vanilla GT SCH ×2 (09:59→22:14)
[2021-05-31] MEDS: CHOLECALCIFEROL (VITD3) 2,000 UNIT CAP/TAB PO SCH (10:00)
[2021-05-31] MEDS: PANTOPRAZOLE 40 MG/10 ML VIAL INJ IV SCH (11:38)
[2021-05-31] MEDS: fentaNYL Drip 2500mCg/250mlNS 250 ML IV SCH (14:16)
[2021-05-31] MEDS: MICAFUNGIN SODIUM 100 MG in SODIUM CHL 0.9% 100 ML IV SCH (17:36)
[2021-05-31] MEDS: PROPOFOL 100 ML IV SCH (18:30)
[2021-05-31] MEDS ORDERED: EPOETIN ALFA-EPBX 10,000 UNIT/1ML VIAL SC ONE (21:00)
[2021-05-31] MEDS: QUEtiapine FUMARATE 25 MG TAB GT SCH (22:15)
[2021-06-01] VITALS (96 sets, daily range): BP systolic 105–145; BP diastolic 56–90
[2021-06-01] MEDS: fentaNYL Drip 2500mCg/250mlNS 250 ML IV SCH (03:05)
[2021-06-01] MEDS: NOREPINEPHRINE 8 MG/250ML KIT 250 ML IV SCH (03:45)
[2021-06-01] MEDS: MIDAZOLAM DRIP 50 mg/50mL 50 ML IV SCH (03:45)
[2021-06-01 04:36] LABS: BUN/Creatinine Ratio 14.3; Calcium 7.7 mg/dL (8.5-10.1); Potassium 4.5 mmol/L (3.5-5.1)
[2021-06-01] MEDS: BUDESONIDE (INHALATION) 0.5 MG/2 ML NEB NEB SCH ×2 (06:04→22:05)
[2021-06-01] MEDS: ALBUTEROL SULF 2.5 MG/0.5ML(0.5%) NEB SOLN NEB PRN ×2 (06:04→22:05)
[2021-06-01] MEDS: NYSTATIN (MOUTH-THROAT) 500,000 UNITS/5 ML SUSP MT SCH ×4 (06:34→21:27)
[2021-06-01] MEDS: CHOLECALCIFEROL (VITD3) 2,000 UNIT CAP/TAB PO SCH (09:17)
[2021-06-01] MEDS: SODIUM CHLOR 0.9% PF (SALINE LOCK) 10ML VIAL/SYR IV SCH ×2 (09:17→21:27)
[2021-06-01] MEDS: Pro-Stat SF 30ml Vanilla GT SCH ×2 (09:17→21:26)
[2021-06-01] MEDS: PANTOPRAZOLE 40 MG/10 ML VIAL INJ IV SCH (09:17)
[2021-06-01] MEDS ORDERED: FUROSEMIDE 20 MG/2 ML VIAL IV ONE (11:00)
[2021-06-01] MEDS ORDERED: SODIUM CHLORIDE 0.9% 500 ML IV ONE (11:00)
[2021-06-01 11:19] LABS: Magnesium 2.4 mg/dL (1.6-2.6); Phosphorus 6.6 mg/dL (2.5-4.90)
[2021-06-01] MEDS: MICAFUNGIN SODIUM 100 MG in SODIUM CHL 0.9% 100 ML IV SCH (17:58)
[2021-06-01] MEDS: PROPOFOL 100 ML IV SCH (18:30)
[2021-06-01] MEDS: QUEtiapine FUMARATE 25 MG TAB GT SCH (21:27)
[2021-06-01] MEDS: METOPROLOL TARTRATE 25 MG TAB GT SCH (21:28)
[2021-06-02] VITALS (100 sets, daily range): BP systolic 111–156; BP diastolic 62–99
[2021-06-02] MEDS: NOREPINEPHRINE 8 MG/250ML KIT 250 ML IV SCH (03:10)
[2021-06-02] MEDS: MIDAZOLAM DRIP 50 mg/50mL 50 ML IV SCH (03:11)
[2021-06-02 04:26] LABS: BUN/Creatinine Ratio 15.3; Calcium 7.5 mg/dL (8.5-10.1); Potassium 3.7 mmol/L (3.5-5.1)
[2021-06-02] MEDS ORDERED: ADENOSINE 6 MG/2 ML INJ IV ONE ×2 (05:25→05:35)
[2021-06-02] MEDS ORDERED: dilTIAZem 25 MG/5 ML VIAL IV ONE (05:37)
[2021-06-02] MEDS: NYSTATIN (MOUTH-THROAT) 500,000 UNITS/5 ML SUSP MT SCH ×4 (05:55→21:12)
[2021-06-02] MEDS: BUDESONIDE (INHALATION) 0.5 MG/2 ML NEB NEB SCH ×2 (06:07→19:24)
[2021-06-02] MEDS: fentaNYL Drip 2500mCg/250mlNS 250 ML IV SCH (07:41)
[2021-06-02] MEDS: PANTOPRAZOLE 40 MG/10 ML VIAL INJ IV SCH (09:55)
[2021-06-02] MEDS: SODIUM CHLOR 0.9% PF (SALINE LOCK) 10ML VIAL/SYR IV SCH ×2 (09:55→21:12)
[2021-06-02] MEDS: Pro-Stat SF 30ml Vanilla GT SCH ×2 (09:55→21:11)
[2021-06-02] MEDS: METOPROLOL TARTRATE 25 MG TAB GT SCH ×2 (09:55→21:11)
[2021-06-02] MEDS: CHOLECALCIFEROL (VITD3) 2,000 UNIT CAP/TAB PO SCH (09:55)
[2021-06-02] MEDS: MICAFUNGIN SODIUM 100 MG in SODIUM CHL 0.9% 100 ML IV SCH (18:00)
[2021-06-02] MEDS: PROPOFOL 100 ML IV SCH (18:30)
[2021-06-02] MEDS: ALBUTEROL SULF 2.5 MG/0.5ML(0.5%) NEB SOLN NEB PRN (19:23)
[2021-06-02] MEDS: QUEtiapine FUMARATE 25 MG TAB GT SCH (21:12)
[2021-06-03] VITALS (94 sets, daily range): BP systolic 115–154; BP diastolic 71–92
[2021-06-03] MEDS: fentaNYL Drip 2500mCg/250mlNS 250 ML IV SCH ×3 (01:56→23:10)
[2021-06-03] MEDS: NOREPINEPHRINE 8 MG/250ML KIT 250 ML IV SCH ×2 (03:45→21:35)
[2021-06-03] MEDS: MIDAZOLAM DRIP 50 mg/50mL 50 ML IV SCH ×2 (03:45→21:35)
[2021-06-03 05:02] LABS: Basophils # (auto) 0.1 10 ^3/uL (0-0.2); Eosinophils # (auto) 0.3 10 ^3/uL (0-0.8); Hematocrit 24.6 % (36.0-46.0); Lymphocytes # (auto) 0.4 10 ^3/uL (0.4-5.4); Monocytes # (auto) 0.4 10 ^3/uL (0-1.3); Neutrophils # (auto) 2.2 10 ^3/uL (1.6-8.6); Red Blood Cells 2.92 10^6/uL (4.0-5.20); White Blood Cell 3.3 10^3/uL (4.4-10.8)
[2021-06-03 05:04] LABS: Basophils % (auto) 2.3 % (0.0-2.0); Eosinophils % (auto) 7.7 % (0.0-7.0); Hemoglobin 8.2 g/dL (12.2-16.2); Lymphocytes % (auto) 10.8 % (10.0-50.0); Mean Corpuscular Hemoglobin 28.2 pg (28.0-32.0); Mean Corpuscular Hgb Conc. 33.5 g/dL (32.0-36.0); Mean Corpuscular Volume 84.2 fL (80.0-100.0); Monocytes % (auto) 12.3 % (0.0-12.0); Neutrophils % (auto) 66.9 % (37.0-80.0); Nucleated Red Blood Cells % 0.3 %
[2021-06-03 05:17] LABS: Red Cell Distribution Width 23.7 % (11.8-14.3)
[2021-06-03 05:31] LABS: BUN/Creatinine Ratio 15.3; Calcium 7.4 mg/dL (8.5-10.1); Potassium 3.7 mmol/L (3.5-5.1)
[2021-06-03] MEDS: NYSTATIN (MOUTH-THROAT) 500,000 UNITS/5 ML SUSP MT SCH ×4 (05:48→20:31)
[2021-06-03] MEDS: Pro-Stat SF 30ml Vanilla GT SCH ×2 (09:46→20:30)
[2021-06-03] MEDS: METOPROLOL TARTRATE 25 MG TAB GT SCH ×2 (09:46→20:30)
[2021-06-03] MEDS: PANTOPRAZOLE 40 MG/10 ML VIAL INJ IV SCH (09:47)
[2021-06-03] MEDS: SODIUM CHLOR 0.9% PF (SALINE LOCK) 10ML VIAL/SYR IV SCH ×2 (09:47→20:31)
[2021-06-03] MEDS: CHOLECALCIFEROL (VITD3) 2,000 UNIT CAP/TAB PO SCH (09:47)
[2021-06-03] MEDS: MICAFUNGIN SODIUM 100 MG in SODIUM CHL 0.9% 100 ML IV SCH (17:49)
[2021-06-03] MEDS: PROPOFOL 100 ML IV SCH (18:30)
[2021-06-03] MEDS: BUDESONIDE (INHALATION) 0.5 MG/2 ML NEB NEB SCH (19:49)
[2021-06-03] MEDS: ALBUTEROL SULF 2.5 MG/0.5ML(0.5%) NEB SOLN NEB PRN (19:49)
[2021-06-03] MEDS: ACETYLCYSTEINE 20%(200MG/ML) SOL 4ML NEB PRN (19:49)
[2021-06-03] MEDS: QUEtiapine FUMARATE 25 MG TAB GT SCH (20:31)
[2021-06-04] VITALS (98 sets, daily range): BP systolic 83–135; BP diastolic 44–83
[2021-06-04 04:30] LABS: Hematocrit 26.4 % (36.0-46.0); Hemoglobin 8.8 g/dL (12.2-16.2); Mean Corpuscular Hemoglobin 28.5 pg (28.0-32.0); Mean Corpuscular Hgb Conc. 33.5 g/dL (32.0-36.0); Mean Corpuscular Volume 85.2 fL (80.0-100.0); White Blood Cell 3.4 10^3/uL (4.4-10.8)
[2021-06-04 04:54] LABS: Potassium 3.6 mmol/L (3.5-5.1)
[2021-06-04 04:59] LABS: BUN/Creatinine Ratio 15.3; Calcium 7.9 mg/dL (8.5-10.1)
[2021-06-04] MEDS: NYSTATIN (MOUTH-THROAT) 500,000 UNITS/5 ML SUSP MT SCH ×4 (05:29→20:14)
[2021-06-04 05:36] LABS: Red Cell Distribution Width 23.5 % (11.8-14.3)
[2021-06-04 05:38] LABS: Basophils % (manual) 0 (0.0-2.0); Blast Cells 0; Metamyelocytes % 0; Promyelocytes % 0; Reactive Lymphocytes 0
[2021-06-04] MEDS: ACETYLCYSTEINE 20%(200MG/ML) SOL 4ML NEB PRN ×2 (06:34→11:31)
[2021-06-04] MEDS: ALBUTEROL SULF 2.5 MG/0.5ML(0.5%) NEB SOLN NEB PRN ×3 (06:34→21:50)
[2021-06-04] MEDS: BUDESONIDE (INHALATION) 0.5 MG/2 ML NEB NEB SCH ×2 (06:34→21:50)
[2021-06-04 06:59] LABS: Band Neutrophils % (manual) 6; Lymphocytes % (manual) 15 (10.0-50.0)
[2021-06-04 07:00] LABS: Eosinophils % (manual) 10 (0-7); Monocytes % (manual) 11 (0-12)
[2021-06-04 07:01] LABS: Myelocytes % 0
[2021-06-04] MEDS: PROPOFOL 100 ML IV SCH (07:50)
[2021-06-04] MEDS: METOPROLOL TARTRATE 25 MG TAB GT SCH ×2 (09:14→21:44)
[2021-06-04] MEDS: Pro-Stat SF 30ml Vanilla GT SCH ×2 (09:14→20:14)
[2021-06-04] MEDS: CHOLECALCIFEROL (VITD3) 2,000 UNIT CAP/TAB PO SCH (09:15)
[2021-06-04] MEDS: SODIUM CHLOR 0.9% PF (SALINE LOCK) 10ML VIAL/SYR IV SCH ×2 (09:15→20:13)
[2021-06-04] MEDS: PANTOPRAZOLE 40 MG/10 ML VIAL INJ IV SCH (09:15)
[2021-06-04] MEDS ORDERED: METOPROLOL TARTRATE 25 MG TAB PO ONE (10:30)
[2021-06-04] MEDS: NOREPINEPHRINE 8 MG/250ML KIT 250 ML IV SCH (10:30)
[2021-06-04] MEDS ORDERED: SODIUM CHLORIDE 0.9% 500 ML IV ONE (10:30)
[2021-06-04] MEDS ORDERED: DIGOXIN (250MCG/ML) 2 ML AMPULE IV ONE ×3 (10:30→11:00)
[2021-06-04] MEDS ORDERED: DIGOXIN (250MCG/ML) 2 ML AMPULE ONE (10:33)
[2021-06-04] MEDS: MICAFUNGIN SODIUM 100 MG in SODIUM CHL 0.9% 100 ML IV SCH (17:15)
[2021-06-04] MEDS: MIDAZOLAM DRIP 50 mg/50mL 50 ML IV SCH (21:44)
[2021-06-04] MEDS: QUEtiapine FUMARATE 25 MG TAB GT SCH (21:44)
[2021-06-05] VITALS (99 sets, daily range): BP systolic 85–160; BP diastolic 42–94
[2021-06-05 03:56] LABS: Basophils # (auto) 0 10 ^3/uL (0-0.2); Basophils % (auto) 0.3 % (0.0-2.0); Eosinophils # (auto) 0.5 10 ^3/uL (0-0.8); Eosinophils % (auto) 11.8 % (0.0-7.0); Hematocrit 26.8 % (36.0-46.0); Hemoglobin 8.5 g/dL (12.2-16.2); Lymphocytes # (auto) 0.6 10 ^3/uL (0.4-5.4); Lymphocytes % (auto) 14.1 % (10.0-50.0); Mean Corpuscular Hemoglobin 27.2 pg (28.0-32.0); Mean Corpuscular Hgb Conc. 31.7 g/dL (32.0-36.0); Mean Corpuscular Volume 85.8 fL (80.0-100.0); Monocytes # (auto) 0.5 10 ^3/uL (0-1.3); Monocytes % (auto) 13.6 % (0.0-12.0); Neutrophils # (auto) 2.4 10 ^3/uL (1.6-8.6); Neutrophils % (auto) 60.2 % (37.0-80.0); Nucleated Red Blood Cells % 0.1 %; Red Blood Cells 3.12 10^6/uL (4.0-5.20); White Blood Cell 3.9 10^3/uL (4.4-10.8)
[2021-06-05 03:57] LABS: Red Cell Distribution Width 22.1 % (11.8-14.3)
[2021-06-05 04:15] LABS: Albumin 1.7 g/dL (3.4-5.0); Calcium 7.9 mg/dL (8.5-10.1)
[2021-06-05 04:19] LABS: Bilirubin, Total 0.4 mg/dL (0.2-1.0); Total Protein 4.9 g/dL (6.4-8.2)
[2021-06-05] MEDS: NYSTATIN (MOUTH-THROAT) 500,000 UNITS/5 ML SUSP MT SCH ×4 (05:04→23:06)
[2021-06-05] MEDS: BUDESONIDE (INHALATION) 0.5 MG/2 ML NEB NEB SCH ×2 (06:29→21:43)
[2021-06-05] MEDS: ALBUTEROL SULF 2.5 MG/0.5ML(0.5%) NEB SOLN NEB PRN ×3 (06:29→21:43)
[2021-06-05] MEDS: ACETYLCYSTEINE 20%(200MG/ML) SOL 4ML NEB PRN ×3 (06:29→21:44)
[2021-06-05] MEDS: NOREPINEPHRINE 8 MG/250ML KIT 250 ML IV SCH (08:09)
[2021-06-05] MEDS: SODIUM CHLOR 0.9% PF (SALINE LOCK) 10ML VIAL/SYR IV SCH ×2 (08:11→23:06)
[2021-06-05] MEDS: Pro-Stat SF 30ml Vanilla GT SCH ×2 (08:11→22:00)
[2021-06-05] MEDS: PANTOPRAZOLE 40 MG/10 ML VIAL INJ IV SCH (09:44)
[2021-06-05] MEDS: METOPROLOL TARTRATE 25 MG TAB GT SCH ×2 (09:44→23:05)
[2021-06-05] MEDS: CHOLECALCIFEROL (VITD3) 2,000 UNIT CAP/TAB PO SCH (09:45)
[2021-06-05] MEDS: fentaNYL Drip 2500mCg/250mlNS 250 ML IV SCH (16:20)
[2021-06-05] MEDS: PROPOFOL 100 ML IV SCH (16:21)
[2021-06-05] MEDS: MICAFUNGIN SODIUM 100 MG in SODIUM CHL 0.9% 100 ML IV SCH (17:10)
[2021-06-05] MEDS: QUEtiapine FUMARATE 25 MG TAB GT SCH (23:06)
[2021-06-06] VITALS (39 sets, daily range): BP systolic 133–207; BP diastolic 69–94
[2021-06-06] MEDS: MIDAZOLAM DRIP 50 mg/50mL 50 ML IV SCH (03:45)
[2021-06-06] MEDS: BUDESONIDE (INHALATION) 0.5 MG/2 ML NEB NEB SCH ×2 (06:21→22:13)
[2021-06-06] MEDS: ACETYLCYSTEINE 20%(200MG/ML) SOL 4ML NEB PRN (06:21)
[2021-06-06] MEDS: ALBUTEROL SULF 2.5 MG/0.5ML(0.5%) NEB SOLN NEB PRN ×2 (06:21→22:13)
[2021-06-06] MEDS: NYSTATIN (MOUTH-THROAT) 500,000 UNITS/5 ML SUSP MT SCH ×4 (06:47→21:12)
[2021-06-06] MEDS: NOREPINEPHRINE 8 MG/250ML KIT 250 ML IV SCH (08:24)
[2021-06-06] MEDS: fentaNYL Drip 2500mCg/250mlNS 250 ML IV SCH (08:25)
[2021-06-06] MEDS: PROPOFOL 100 ML IV SCH (08:26)
[2021-06-06] MEDS: Pro-Stat SF 30ml Vanilla GT SCH ×2 (08:45→21:11)
[2021-06-06] MEDS: SODIUM CHLOR 0.9% PF (SALINE LOCK) 10ML VIAL/SYR IV SCH ×2 (08:46→21:12)
[2021-06-06] MEDS: PANTOPRAZOLE 40 MG/10 ML VIAL INJ IV SCH (09:28)
[2021-06-06] MEDS: METOPROLOL TARTRATE 25 MG TAB GT SCH ×2 (09:28→21:11)
[2021-06-06] MEDS: CHOLECALCIFEROL (VITD3) 2,000 UNIT CAP/TAB PO SCH (09:28)
[2021-06-06] MEDS ORDERED: amLODIPine BESYLATE 5 MG TAB PO SCH (10:00)
[2021-06-06] MEDS: LORazepam 2MG/ML-1ML VIAL IV PRN (12:20)
[2021-06-06] MEDS ORDERED: cloNIDine HCL 0.1 MG TAB PO PRN (13:30)
[2021-06-06] MEDS ORDERED: amLODIPine BESYLATE 5 MG TAB ONE (14:38)
[2021-06-06] MEDS: cloNIDine HCL 0.1 MG TAB PO PRN ×2 (15:01→23:45)
[2021-06-06] MEDS: MORPHINE SULFATE INJECTION 2 MG/ML SYRG IV PRN ×2 (15:01→21:13)
[2021-06-06] MEDS: MICAFUNGIN SODIUM 100 MG in SODIUM CHL 0.9% 100 ML IV SCH (17:54)
[2021-06-06] MEDS: QUEtiapine FUMARATE 25 MG TAB GT SCH (21:12)
[2021-06-07] VITALS (15 sets, daily range): BP systolic 128–199; BP diastolic 74–95
[2021-06-07] MEDS: MIDAZOLAM DRIP 50 mg/50mL 50 ML IV SCH (02:05)
[2021-06-07 05:43] LABS: Basophils # (auto) 0.1 10 ^3/uL (0-0.2); Eosinophils # (auto) 0.3 10 ^3/uL (0-0.8); Lymphocytes # (auto) 0.6 10 ^3/uL (0.4-5.4); Monocytes # (auto) 0.5 10 ^3/uL (0-1.3); Neutrophils # (auto) 2.8 10 ^3/uL (1.6-8.6); Nucleated Red Blood Cells % 0.1 %; White Blood Cell 4.3 10^3/uL (4.4-10.8)
[2021-06-07 05:45] LABS: Basophils % (auto) 2.1 % (0.0-2.0); Eosinophils % (auto) 7.4 % (0.0-7.0); Hematocrit 25.7 % (36.0-46.0); Hemoglobin 8.5 g/dL (12.2-16.2); Lymphocytes % (auto) 13.8 % (10.0-50.0); Mean Corpuscular Hemoglobin 27.9 pg (28.0-32.0); Mean Corpuscular Hgb Conc. 32.9 g/dL (32.0-36.0); Mean Corpuscular Volume 84.8 fL (80.0-100.0); Monocytes % (auto) 10.9 % (0.0-12.0); Neutrophils % (auto) 65.8 % (37.0-80.0); Red Blood Cells 3.03 10^6/uL (4.0-5.20)
[2021-06-07 05:49] LABS: Red Cell Distribution Width 21.9 % (11.8-14.3)
[2021-06-07 06:17] LABS: Potassium 3.2 mmol/L (3.5-5.1)
[2021-06-07 06:28] LABS: Albumin 1.8 g/dL (3.4-5.0); Calcium 8.3 mg/dL (8.5-10.1)
[2021-06-07 06:31] LABS: Bilirubin, Total 0.5 mg/dL (0.2-1.0)
[2021-06-07] MEDS: ALBUTEROL SULF 2.5 MG/0.5ML(0.5%) NEB SOLN NEB PRN (06:40)
[2021-06-07] MEDS: BUDESONIDE (INHALATION) 0.5 MG/2 ML NEB NEB SCH (06:41)
[2021-06-07] MEDS: cloNIDine HCL 0.1 MG TAB PO PRN ×2 (07:00→14:24)
[2021-06-07] MEDS: MORPHINE SULFATE INJECTION 2 MG/ML SYRG IV PRN (07:00)
[2021-06-07] MEDS: LORazepam 2MG/ML-1ML VIAL IV PRN (07:00)
[2021-06-07] MEDS: NYSTATIN (MOUTH-THROAT) 500,000 UNITS/5 ML SUSP MT SCH ×2 (07:20→11:19)
[2021-06-07 08:27] LABS: Magnesium 2.1 mg/dL (1.6-2.6); Phosphorus 3.9 mg/dL (2.5-4.90)
[2021-06-07] MEDS: PANTOPRAZOLE 40 MG/10 ML VIAL INJ IV SCH (09:01)
[2021-06-07] MEDS: amLODIPine BESYLATE 5 MG TAB PO SCH (09:03)
[2021-06-07] MEDS: SODIUM CHLOR 0.9% PF (SALINE LOCK) 10ML VIAL/SYR IV SCH ×2 (09:03→22:32)
[2021-06-07] MEDS: Pro-Stat SF 30ml Vanilla GT SCH ×2 (09:04→22:32)
[2021-06-07] MEDS: METOPROLOL TARTRATE 25 MG TAB GT SCH (09:04)
[2021-06-07] MEDS ORDERED: ALBUMIN 25% 100 ML IV PRN (11:15)
[2021-06-07] MEDS: CHOLECALCIFEROL (VITD3) 2,000 UNIT CAP/TAB PO SCH (11:19)
[2021-06-07] MEDS ORDERED: LEVALBUTEROL HCL 1.25 MG/3 ML NEB NEB PRN (11:30)
[2021-06-07] MEDS ORDERED: POTASSIUM EFFERVESENT TAB 25 MEQ GT ONE (11:45)
[2021-06-07] MEDS ORDERED: ADENOSINE 6 MG/2 ML INJ IV ONE ×2 (12:45→13:00)
[2021-06-07] MEDS: METOPROLOL TARTRATE 50 MG TAB GT SCH (22:31)
[2021-06-07] MEDS: FAMOTIDINE 20 MG TAB GT SCH (22:32)
[2021-06-07] MEDS: MICAFUNGIN SODIUM 100 MG in SODIUM CHL 0.9% 100 ML IV SCH (22:48)
[2021-06-08 05:00] VITALS: BP 143/86
[2021-06-08 09:00] VITALS: BP 141/82
[2021-06-08] MEDS ORDERED: ALBUMIN 25% 100 ML IV ONE (09:15)
[2021-06-08] MEDS: SODIUM CHLOR 0.9% PF (SALINE LOCK) 10ML VIAL/SYR IV SCH ×2 (10:50→22:07)
[2021-06-08] MEDS: METOPROLOL TARTRATE 50 MG TAB GT SCH ×2 (11:15→22:10)
[2021-06-08] MEDS: amLODIPine BESYLATE 5 MG TAB PO SCH (11:17)
[2021-06-08] MEDS: Pro-Stat SF 30ml Vanilla GT SCH ×2 (11:17→22:07)
[2021-06-08] MEDS: POTASSIUM EFFERVESENT TAB 25 MEQ GT SCH ×2 (11:17→22:06)
[2021-06-08] MEDS: CHOLECALCIFEROL (VITD3) 2,000 UNIT CAP/TAB PO SCH (11:18)
[2021-06-08] MEDS: LEVALBUTEROL HCL 1.25 MG/3 ML NEB NEB SCH ×3 (12:00→23:41)
[2021-06-08] MEDS: ACETYLCYSTEINE 10 %(100MG/ML) SOL 4ML NEB SCH ×3 (12:00→23:41)
[2021-06-08 13:00] VITALS: BP 142/80
[2021-06-08 17:00] VITALS: BP 158/86
[2021-06-08 17:04] LABS: Cholesterol 128 mg/dL (< 200); HDL Cholesterol 31 mg/dL (40-59); LDL Cholesterol 66 mg/dL (< 100); Triglycerides 199 mg/dL (< 150)
[2021-06-08] MEDS: MICAFUNGIN SODIUM 100 MG in SODIUM CHL 0.9% 100 ML IV SCH (18:48)
[2021-06-08] MEDS: FUROSEMIDE 40 MG/4 ML VIAL IV SCH (18:48)
[2021-06-08] MEDS: Nepro With Carb Steady 1 Liter Bottle GT SCH (20:15)
[2021-06-08 22:00] VITALS: BP 162/81
[2021-06-08] MEDS: ATORVASTATIN 20 MG TAB GT SCH (22:06)
[2021-06-08] MEDS: FAMOTIDINE 20 MG TAB GT SCH (22:07)
[2021-06-09 05:00] VITALS: BP 128/78
[2021-06-09] MEDS: Nepro With Carb Steady 1 Liter Bottle GT SCH ×4 (06:00→18:04)
[2021-06-09] MEDS: FUROSEMIDE 40 MG/4 ML VIAL IV SCH (06:00)
[2021-06-09] MEDS: ACETYLCYSTEINE 10 %(100MG/ML) SOL 4ML NEB SCH ×3 (06:14→18:49)
[2021-06-09] MEDS: LEVALBUTEROL HCL 1.25 MG/3 ML NEB NEB SCH ×3 (06:14→18:49)
[2021-06-09 07:49] LABS: Potassium 3.5 mmol/L (3.5-5.1)
[2021-06-09 07:53] LABS: BUN/Creatinine Ratio 14.5; Calcium 8.6 mg/dL (8.5-10.1)
[2021-06-09 09:00] VITALS: BP 150/80
[2021-06-09] MEDS: METOPROLOL TARTRATE 50 MG TAB GT SCH ×2 (12:37→22:27)
[2021-06-09] MEDS: POTASSIUM EFFERVESENT TAB 25 MEQ GT SCH (12:37)
[2021-06-09] MEDS: SODIUM CHLOR 0.9% PF (SALINE LOCK) 10ML VIAL/SYR IV SCH ×2 (12:38→22:27)
[2021-06-09] MEDS: Pro-Stat SF 30ml Vanilla GT SCH ×2 (12:38→22:27)
[2021-06-09] MEDS: ASPirin 81 mg TAB PO SCH (12:38)
[2021-06-09] MEDS: amLODIPine BESYLATE 5 MG TAB PO SCH (12:39)
[2021-06-09] MEDS: CHOLECALCIFEROL (VITD3) 2,000 UNIT CAP/TAB PO SCH (12:39)
[2021-06-09 13:00] VITALS: BP 156/83
[2021-06-09] MEDS ORDERED: IBUPROFEN 100MG/5ML ORAL SUSP 100 MG/5 ML UD GT PRN (16:00)
[2021-06-09 17:00] VITALS: BP 153/88
[2021-06-09] MEDS: MICAFUNGIN SODIUM 100 MG in SODIUM CHL 0.9% 100 ML IV SCH (18:04)
[2021-06-09] MEDS: FREE WATER GT SCH ×2 (18:04→22:26)
[2021-06-09 22:00] VITALS: BP 151/91
[2021-06-09] MEDS: ATORVASTATIN 20 MG TAB GT SCH (22:27)
[2021-06-09] MEDS: FAMOTIDINE 20 MG TAB GT SCH (22:27)
[2021-06-10] MEDS: ACETYLCYSTEINE 10 %(100MG/ML) SOL 4ML NEB SCH ×4 (00:30→21:09)
[2021-06-10] MEDS: LEVALBUTEROL HCL 1.25 MG/3 ML NEB NEB SCH ×4 (00:30→21:08)
[2021-06-10] MEDS: FREE WATER GT SCH ×6 (02:00→23:24)
[2021-06-10 05:00] VITALS: BP 157/88
[2021-06-10] MEDS: Nepro With Carb Steady 1 Liter Bottle GT SCH ×5 (06:00→23:26)
[2021-06-10 07:20] LABS: Calcium 8.8 mg/dL (8.5-10.1); Potassium 3.3 mmol/L (3.5-5.1)
[2021-06-10 07:22] LABS: BUN/Creatinine Ratio 14.9
[2021-06-10 09:00] VITALS: BP 151/87
[2021-06-10] MEDS: POTASSIUM EFFERVESENT TAB 25 MEQ GT SCH (09:17)
[2021-06-10] MEDS: Pro-Stat SF 30ml Vanilla GT SCH ×2 (09:20→23:25)
[2021-06-10] MEDS: METOPROLOL TARTRATE 50 MG TAB GT SCH ×2 (09:20→23:24)
[2021-06-10] MEDS: ASPirin 81 mg TAB PO SCH (09:21)
[2021-06-10] MEDS: FUROSEMIDE 40 MG/4 ML VIAL IV SCH (09:21)
[2021-06-10] MEDS: SODIUM CHLOR 0.9% PF (SALINE LOCK) 10ML VIAL/SYR IV SCH ×2 (09:21→22:00)
[2021-06-10] MEDS: CHOLECALCIFEROL (VITD3) 2,000 UNIT CAP/TAB PO SCH (09:22)
[2021-06-10] MEDS: amLODIPine BESYLATE 5 MG TAB PO SCH (09:23)
[2021-06-10 13:00] VITALS: BP 162/82
[2021-06-10] MEDS: NIFEdipine 10 MG CAP NG SCH ×2 (14:00→22:00)
[2021-06-10 17:00] VITALS: BP 152/91
[2021-06-10] MEDS: MICAFUNGIN SODIUM 100 MG in SODIUM CHL 0.9% 100 ML IV SCH ×2 (18:18→18:32)
[2021-06-10] MEDS: cloNIDine HCL 0.1 MG TAB PO PRN (18:20)
[2021-06-10 22:00] VITALS: BP 139/92
[2021-06-10] MEDS: ATORVASTATIN 20 MG TAB GT SCH (23:24)
[2021-06-10] MEDS: FAMOTIDINE 20 MG TAB GT SCH (23:25)
[2021-06-11] MEDS: ACETYLCYSTEINE 10 %(100MG/ML) SOL 4ML NEB SCH ×4 (00:08→18:00)
[2021-06-11] MEDS: LEVALBUTEROL HCL 1.25 MG/3 ML NEB NEB SCH ×4 (00:08→18:00)
[2021-06-11] MEDS: FREE WATER GT SCH ×5 (02:00→18:00)
[2021-06-11 05:00] VITALS: BP 132/98
[2021-06-11] MEDS: Nepro With Carb Steady 1 Liter Bottle GT SCH ×3 (05:06→18:00)
[2021-06-11] MEDS: NIFEdipine 10 MG CAP NG SCH ×4 (06:00→22:00)
[2021-06-11 09:00] VITALS: BP 138/83
[2021-06-11] MEDS: CHOLECALCIFEROL (VITD3) 2,000 UNIT CAP/TAB PO SCH (10:00)
[2021-06-11] MEDS: ASPirin 81 mg TAB PO SCH (10:00)
[2021-06-11] MEDS: Pro-Stat SF 30ml Vanilla GT SCH (10:00)
[2021-06-11] MEDS: METOPROLOL TARTRATE 50 MG TAB GT SCH (10:00)
[2021-06-11] MEDS: POTASSIUM EFFERVESENT TAB 25 MEQ GT SCH (10:00)
[2021-06-11] MEDS: amLODIPine BESYLATE 5 MG TAB PO SCH (10:00)
[2021-06-11] MEDS: SODIUM CHLOR 0.9% PF (SALINE LOCK) 10ML VIAL/SYR IV SCH (11:02)
[2021-06-11] MEDS: LORazepam 2MG/ML-1ML VIAL IV PRN (11:16)
[2021-06-11] MEDS: FUROSEMIDE 40 MG/4 ML VIAL IV SCH (11:17)
[2021-06-11] MEDS ORDERED: IBUPROFEN 100MG/5ML ORAL SUSP 100 MG/5 ML UD GT PRN (14:30)
[2021-06-11 17:00] VITALS: BP 140/73
[2021-06-11 22:00] VITALS: BP 146/114
[2021-06-12] MEDS: FREE WATER GT SCH ×7 (00:08→22:45)
[2021-06-12] MEDS: ATORVASTATIN 20 MG TAB GT SCH ×2 (00:08→22:45)
[2021-06-12] MEDS: METOPROLOL TARTRATE 50 MG TAB GT SCH ×3 (00:09→22:46)
[2021-06-12] MEDS: FAMOTIDINE 20 MG TAB GT SCH ×2 (00:09→22:46)
[2021-06-12] MEDS: SODIUM CHLOR 0.9% PF (SALINE LOCK) 10ML VIAL/SYR IV SCH ×3 (00:10→22:47)
[2021-06-12] MEDS: Nepro With Carb Steady 1 Liter Bottle GT SCH ×4 (00:10→17:38)
[2021-06-12] MEDS: Pro-Stat SF 30ml Vanilla GT SCH ×3 (00:10→22:59)
[2021-06-12] MEDS: LEVALBUTEROL HCL 1.25 MG/3 ML NEB NEB SCH ×4 (01:04→19:53)
[2021-06-12] MEDS: ACETYLCYSTEINE 10 %(100MG/ML) SOL 4ML NEB SCH ×4 (01:04→19:53)
[2021-06-12 05:00] VITALS: BP 144/90
[2021-06-12] MEDS: NIFEdipine 10 MG CAP NG SCH ×4 (06:00→22:48)
[2021-06-12 07:49] LABS: BUN/Creatinine Ratio 14.5; Calcium 8.5 mg/dL (8.5-10.1); Potassium 3.3 mmol/L (3.5-5.1)
[2021-06-12 09:00] VITALS: BP 144/87
[2021-06-12] MEDS: CHOLECALCIFEROL (VITD3) 2,000 UNIT CAP/TAB PO SCH (10:00)
[2021-06-12] MEDS: POTASSIUM EFFERVESENT TAB 25 MEQ GT SCH (10:04)
[2021-06-12] MEDS: FUROSEMIDE 40 MG/4 ML VIAL IV SCH (10:05)
[2021-06-12] MEDS: ASPirin 81 mg TAB PO SCH (10:05)
[2021-06-12] MEDS: amLODIPine BESYLATE 5 MG TAB NG SCH (10:48)
[2021-06-12] MEDS: ASPirin 81 mg TAB NG SCH (10:48)
[2021-06-12 13:00] VITALS: BP 142/82
[2021-06-12] MEDS ORDERED: POTASSIUM EFFERVESENT TAB 25 MEQ GT ONE (13:00)
[2021-06-12] MEDS ORDERED: FLORASTOR (S. BOULARDII) 250 MG CAP GT ONE (13:15)
[2021-06-12] MEDS: metroNIDAZOLE 500MG/100ML 100 ML IV SCH ×2 (15:42→22:47)
[2021-06-12 17:00] VITALS: BP 145/80
[2021-06-12] MEDS: MICAFUNGIN SODIUM 100 MG in SODIUM CHL 0.9% 100 ML IV SCH (17:38)
[2021-06-12] MEDS: VANCOMYCIN HCL 125MG/5ML ORAL SOL GT SCH (17:39)
[2021-06-12 22:00] VITALS: BP 145/106
[2021-06-13] MEDS: VANCOMYCIN HCL 125MG/5ML ORAL SOL GT SCH ×4 (00:36→17:18)
[2021-06-13] MEDS: FREE WATER GT SCH ×3 (00:36→07:06)
[2021-06-13] MEDS: Nepro With Carb Steady 1 Liter Bottle GT SCH ×4 (00:36→17:19)
[2021-06-13] MEDS: metroNIDAZOLE 500MG/100ML 100 ML IV SCH ×3 (00:59→14:08)
[2021-06-13 05:00] VITALS: BP 145/88
[2021-06-13] MEDS: NIFEdipine 10 MG CAP NG SCH ×3 (06:00→22:00)
[2021-06-13] MEDS: LEVALBUTEROL HCL 1.25 MG/3 ML NEB NEB SCH ×3 (06:58→22:49)
[2021-06-13] MEDS: ACETYLCYSTEINE 10 %(100MG/ML) SOL 4ML NEB SCH ×3 (06:58→22:49)
[2021-06-13 09:00] VITALS: BP 153/85
[2021-06-13] MEDS: ASPirin 81 mg TAB NG SCH (10:00)
[2021-06-13] MEDS: FUROSEMIDE 40 MG/4 ML VIAL IV SCH (10:00)
[2021-06-13] MEDS: Pro-Stat SF 30ml Vanilla GT SCH ×2 (10:00→22:00)
[2021-06-13] MEDS: amLODIPine BESYLATE 5 MG TAB NG SCH (10:00)
[2021-06-13] MEDS: POTASSIUM EFFERVESENT TAB 25 MEQ GT SCH (10:00)
[2021-06-13] MEDS: METOPROLOL TARTRATE 50 MG TAB GT SCH ×2 (10:00→22:00)
[2021-06-13] MEDS: FLORASTOR (S. BOULARDII) 250 MG CAP GT SCH (10:00)
[2021-06-13] MEDS: SODIUM CHLOR 0.9% PF (SALINE LOCK) 10ML VIAL/SYR IV SCH ×2 (10:00→22:00)
[2021-06-13] MEDS: CHOLECALCIFEROL (VITD3) 2,000 UNIT CAP/TAB PO SCH (10:00)
[2021-06-13] MEDS: LORazepam 2MG/ML-1ML VIAL IV PRN (12:13)
[2021-06-13] MEDS: cloNIDine 0.2 mg/24hr 7DAY PATCH TD SCH (12:46)
[2021-06-13] MEDS: D5W/SOD CHL 0.45% 1,000 ML IV SCH (12:47)
[2021-06-13 13:00] VITALS: BP 141/81
[2021-06-13 17:00] VITALS: BP 150/71
[2021-06-13] MEDS: MICAFUNGIN SODIUM 100 MG in SODIUM CHL 0.9% 100 ML IV SCH (17:22)
[2021-06-13 22:00] VITALS: BP 148/96
[2021-06-13] MEDS: ATORVASTATIN 20 MG TAB GT SCH (22:00)
[2021-06-13] MEDS: FAMOTIDINE 20 MG TAB GT SCH (22:00)
[2021-06-14 05:00] VITALS: BP 156/98
[2021-06-14] MEDS: VANCOMYCIN HCL 125MG/5ML ORAL SOL GT SCH ×2 (06:00)
[2021-06-14] MEDS: NIFEdipine 10 MG CAP NG SCH (06:00)
[2021-06-14] MEDS: Nepro With Carb Steady 1 Liter Bottle GT SCH ×2 (06:00)
[2021-06-14] MEDS ORDERED: LEVALBUTEROL HCL 1.25 MG/3 ML NEB NEB SCH (06:00)
[2021-06-14 06:18] LABS: BUN/Creatinine Ratio 13.4; Calcium 8.9 mg/dL (8.5-10.1); Potassium 3.2 mmol/L (3.5-5.1)
[2021-06-14] MEDS: D5W/SOD CHL 0.45% 1,000 ML IV SCH (06:19)
[2021-06-14] MEDS: metroNIDAZOLE 500MG/100ML 100 ML IV SCH ×3 (06:59→22:19)
[2021-06-14] MEDS: ACETYLCYSTEINE 10 %(100MG/ML) SOL 4ML NEB SCH ×2 (07:19→14:00)
[2021-06-14 09:00] VITALS: BP 150/105
[2021-06-14] MEDS: FLORASTOR (S. BOULARDII) 250 MG CAP GT SCH (09:39)
[2021-06-14] MEDS: amLODIPine BESYLATE 5 MG TAB NG SCH (09:40)
[2021-06-14] MEDS: METOPROLOL TARTRATE 50 MG TAB GT SCH (09:40)
[2021-06-14] MEDS: ASPirin 81 mg TAB NG SCH (09:40)
[2021-06-14] MEDS: Pro-Stat SF 30ml Vanilla GT SCH (09:40)
[2021-06-14] MEDS: POTASSIUM EFFERVESENT TAB 25 MEQ GT SCH (09:40)
[2021-06-14] MEDS: CHOLECALCIFEROL (VITD3) 2,000 UNIT CAP/TAB PO SCH (09:41)
[2021-06-14] MEDS ORDERED: ADENOSINE 6 MG/2 ML INJ IV ONE (10:00)
[2021-06-14] MEDS: SODIUM CHLOR 0.9% PF (SALINE LOCK) 10ML VIAL/SYR IV SCH ×2 (10:00→22:20)
[2021-06-14] MEDS ORDERED: AMIODARONE HCL 150 MG in D5W 5% 100 ML IV ONE (10:15)
[2021-06-14] MEDS ORDERED: POTASSIUM CHLORIDE 20 MEQ, LIDOCAINE 1% (LOCAL ANESTH.) 2 ML in SODIUM CHL 0.9% 100 ML IV ONE (10:30)
[2021-06-14] MEDS ORDERED: AMIODARONE 450mg/250ml AE 250 ML IV SCH (10:30)
[2021-06-14] MEDS ORDERED: SOD CHL 0.9%/ KCL 20MEQ 1,000 ML IV SCH (13:15)
[2021-06-14] MEDS ORDERED: POTASSIUM CHL 20MEQ/50ML 50 ML IV ONE (14:15)
[2021-06-14] MEDS: AMIODARONE 450mg/250ml AE 250 ML IV SCH (17:57)
[2021-06-14 22:00] VITALS: BP 152/97
[2021-06-15] MEDS: metroNIDAZOLE 500MG/100ML 100 ML IV SCH ×3 (05:50→21:22)
[2021-06-15 09:00] VITALS: BP 156/81
[2021-06-15] MEDS: FOLIC ACID 1 MG TAB PO SCH (10:00)
[2021-06-15] MEDS ORDERED: CYANOCOBALAMIN 500 MCG TAB PO SCH (10:00)
[2021-06-15] MEDS ORDERED: PYRIDOXINE HCL 50 MG TAB PO SCH (10:00)
[2021-06-15 10:43] LABS: Albumin 2.6 g/dL (3.4-5.0); Calcium 9.1 mg/dL (8.5-10.1)
[2021-06-15 10:46] LABS: BUN/Creatinine Ratio 12.7; Bilirubin, Total 0.6 mg/dL (0.2-1.0); Total Protein 6.3 g/dL (6.4-8.2)
[2021-06-15] MEDS ORDERED: TPN PER PHARMACY 0 ML IV SCH (11:30)
[2021-06-15] MEDS: AMIODARONE 450mg/250ml AE 250 ML IV SCH (11:33)
[2021-06-15] MEDS: SODIUM CHLOR 0.9% PF (SALINE LOCK) 10ML VIAL/SYR IV SCH ×2 (11:33→22:52)
[2021-06-15 13:00] VITALS: BP 157/108
[2021-06-15] MEDS: LABETALOL HCL 5 MG/ML 4ML SYRINGE IV PRN (13:15)
[2021-06-15] MEDS ORDERED: LORazepam 2MG/ML-1ML VIAL IV ONE ×2 (16:30→16:45)
[2021-06-15] MEDS ORDERED: LORazepam 2MG/ML-1ML VIAL IV PRN (16:45)
[2021-06-15 17:00] VITALS: BP 146/97
[2021-06-15] MEDS: TPN PER PHARMACY IV NR ×5 (21:18)
[2021-06-15 22:00] VITALS: BP 145/110
[2021-06-15 23:19] LABS: Magnesium 1.8 mg/dL (1.6-2.6)
[2021-06-15] MEDS: LORazepam 2MG/ML-1ML VIAL IV PRN (23:21)
[2021-06-15 23:24] LABS: Pre Albumin 6.8 mg/dL (20.0-40.0)
[2021-06-16] MEDS ORDERED: DEXTROSE (50%) 50ML SYRG IV SCH
[2021-06-16] MEDS: AMIODARONE 450mg/250ml AE 250 ML IV SCH ×3 (01:47→17:51)
[2021-06-16 05:00] VITALS: BP 149/118
[2021-06-16] MEDS: metroNIDAZOLE 500MG/100ML 100 ML IV SCH ×3 (05:32→22:17)
[2021-06-16] MEDS: ACCU-CHEK COMFORT CURVE STRIP VI SCH ×4 (05:54→17:11)
[2021-06-16] MEDS: InsuLIN REG 1unit/0.01ml Soln (100units/ml) SC SCH ×4 (05:55→17:11)
[2021-06-16 09:18] LABS: Potassium 3.2 mmol/L (3.5-5.1)
[2021-06-16 09:23] LABS: Albumin 2.5 g/dL (3.4-5.0); BUN/Creatinine Ratio 13.7; Magnesium 1.7 mg/dL (1.6-2.6)
[2021-06-16 09:54] LABS: Bilirubin, Total 0.4 mg/dL (0.2-1.0); Phosphorus 3.9 mg/dL (2.5-4.90); Total Protein 6.6 g/dL (6.4-8.2)
[2021-06-16] MEDS: SODIUM CHLOR 0.9% PF (SALINE LOCK) 10ML VIAL/SYR IV SCH ×2 (10:32→22:17)
[2021-06-16] MEDS: FOLIC ACID 1 MG TAB PO SCH (10:32)
[2021-06-16 10:36] VITALS: BP 148/113
[2021-06-16] MEDS ORDERED: POTASSIUM CHL 20MEQ/50ML 50 ML IV ONE (11:00)
[2021-06-16] MEDS: MAGNESIUM SULFATE 1GM/100ML 100 ML IV SCH ×2 (11:39→12:24)
[2021-06-16] MEDS: POTASSIUM CHL 20MEQ/50ML 50 ML IV SCH ×2 (13:47→16:21)
[2021-06-16] MEDS: LABETALOL HCL 5 MG/ML 4ML SYRINGE IV PRN ×2 (15:25→17:52)
[2021-06-16 15:40] VITALS: BP 151/102
[2021-06-16 17:10] VITALS: BP 178/95
[2021-06-16 20:00] VITALS: BP 160/82
[2021-06-16] MEDS ORDERED: TPN PER PHARMACY IV NR ×8 (20:00)
[2021-06-17 05:00] VITALS: BP 140/92
[2021-06-17] MEDS: metroNIDAZOLE 500MG/100ML 100 ML IV SCH ×3 (05:52→21:10)
[2021-06-17] MEDS: ACCU-CHEK COMFORT CURVE STRIP VI SCH ×5 (05:52→23:36)
[2021-06-17] MEDS: InsuLIN REG 1unit/0.01ml Soln (100units/ml) SC SCH ×5 (05:53→23:44)
[2021-06-17 07:32] LABS: Albumin 2.2 g/dL (3.4-5.0); Calcium 11.4 mg/dL (8.5-10.1); Magnesium 2.9 mg/dL (1.6-2.6); Potassium 4.3 mmol/L (3.5-5.1)
[2021-06-17 07:37] LABS: BUN/Creatinine Ratio 13.1; Bilirubin, Total 0.5 mg/dL (0.2-1.0); Phosphorus 3.8 mg/dL (2.5-4.90); Total Protein 6.9 g/dL (6.4-8.2)
[2021-06-17] MEDS: TPN PER PHARMACY IV NR ×5 (08:02)
[2021-06-17 09:00] VITALS: BP 157/102
[2021-06-17] MEDS: FOLIC ACID 1 MG TAB PO SCH (09:53)
[2021-06-17] MEDS: SODIUM CHLOR 0.9% PF (SALINE LOCK) 10ML VIAL/SYR IV SCH ×2 (09:53→21:10)
[2021-06-17] MEDS: AMIODARONE 450mg/250ml AE 250 ML IV SCH (09:54)
[2021-06-17] MEDS: LABETALOL HCL 5 MG/ML 4ML SYRINGE IV PRN ×2 (09:54→17:47)
[2021-06-17] MEDS ORDERED: PYRIDOXINE HCL 50 MG TAB PO SCH (10:00)
[2021-06-17] MEDS ORDERED: CYANOCOBALAMIN 500 MCG TAB PO SCH (10:00)
[2021-06-17 13:00] VITALS: BP 163/101
[2021-06-17 17:00] VITALS: BP 158/97
[2021-06-17] MEDS ORDERED: TPN PER PHARMACY IV NR ×7 (20:00)
[2021-06-17 22:00] VITALS: BP 149/97
[2021-06-18 05:00] VITALS: BP 173/94
[2021-06-18] MEDS: metroNIDAZOLE 500MG/100ML 100 ML IV SCH (05:55)
[2021-06-18] MEDS: InsuLIN REG 1unit/0.01ml Soln (100units/ml) SC SCH ×3 (06:00→17:14)
[2021-06-18] MEDS: ACCU-CHEK COMFORT CURVE STRIP VI SCH ×3 (06:04→18:20)
[2021-06-18] MEDS: LABETALOL HCL 5 MG/ML 4ML SYRINGE IV PRN (07:12)
[2021-06-18 08:20] LABS: Potassium 4.1 mmol/L (3.5-5.1)
[2021-06-18 08:30] LABS: Albumin 2.1 g/dL (3.4-5.0); BUN/Creatinine Ratio 15.5; Bilirubin, Total 0.5 mg/dL (0.2-1.0); Calcium 12.1 mg/dL (8.5-10.1); Magnesium 2.6 mg/dL (1.6-2.6); Phosphorus 4.2 mg/dL (2.5-4.90); Total Protein 7.1 g/dL (6.4-8.2)
[2021-06-18] MEDS ORDERED: METOPROLOL TARTRATE 1MG/1ML-5ML VIAL IV ONE (08:30)
[2021-06-18 09:00] VITALS: BP 151/100
[2021-06-18] MEDS: SODIUM CHLOR 0.9% PF (SALINE LOCK) 10ML VIAL/SYR IV SCH ×2 (10:00→21:28)
[2021-06-18 13:00] VITALS: BP 142/91
[2021-06-18] MEDS: METOPROLOL TARTRATE 1MG/1ML-5ML VIAL IV SCH ×2 (13:30→18:37)
[2021-06-18] MEDS: AMIODARONE 450mg/250ml AE 250 ML IV SCH (16:40)
[2021-06-18 16:44] VITALS: BP 162/95
[2021-06-18] MEDS ORDERED: TPN PER PHARMACY IV NR ×9 (20:00)
[2021-06-18 22:00] VITALS: BP 152/97
[2021-06-19] MEDS: ACCU-CHEK COMFORT CURVE STRIP VI SCH ×5 (00:23→20:37)
[2021-06-19] MEDS: METOPROLOL TARTRATE 1MG/1ML-5ML VIAL IV SCH ×4 (00:42→19:04)
[2021-06-19] MEDS: AMIODARONE 450mg/250ml AE 250 ML IV SCH (01:30)
[2021-06-19 05:00] VITALS: BP 157/100
[2021-06-19] MEDS: InsuLIN REG 1unit/0.01ml Soln (100units/ml) SC SCH ×4 (06:00→18:00)
[2021-06-19 08:37] LABS: Potassium 4.7 mmol/L (3.5-5.1)
[2021-06-19 08:53] LABS: Albumin 2.3 g/dL (3.4-5.0); BUN/Creatinine Ratio 19.9; Bilirubin, Total 0.5 mg/dL (0.2-1.0); Calcium 12.7 mg/dL (8.5-10.1); Magnesium 1.8 mg/dL (1.6-2.6); Total Protein 6.8 g/dL (6.4-8.2)
[2021-06-19 09:00] VITALS: BP 165/85
[2021-06-19] MEDS: SODIUM CHLOR 0.9% PF (SALINE LOCK) 10ML VIAL/SYR IV SCH ×2 (11:18→21:52)
[2021-06-19 13:00] VITALS: BP 144/86
[2021-06-19 17:00] VITALS: BP 153/80
[2021-06-19] MEDS ORDERED: TPN PER PHARMACY IV NR ×8 (20:00)
[2021-06-19 22:00] VITALS: BP 161/98
[2021-06-20] MEDS: ACCU-CHEK COMFORT CURVE STRIP VI SCH ×3 (00:25→18:10)
[2021-06-20] MEDS: METOPROLOL TARTRATE 1MG/1ML-5ML VIAL IV SCH ×4 (00:26→18:10)
[2021-06-20 05:00] VITALS: BP 153/98
[2021-06-20] MEDS: LABETALOL HCL 5 MG/ML 4ML SYRINGE IV PRN ×2 (05:04→14:34)
[2021-06-20] MEDS: InsuLIN REG 1unit/0.01ml Soln (100units/ml) SC SCH ×4 (06:00→18:00)
[2021-06-20 08:27] LABS: Potassium 4.7 mmol/L (3.5-5.1)
[2021-06-20 08:35] VITALS: BP 139/93
[2021-06-20 08:39] LABS: Albumin 2.1 g/dL (3.4-5.0); BUN/Creatinine Ratio 22.9; Bilirubin, Total 0.4 mg/dL (0.2-1.0); Magnesium 2.5 mg/dL (1.6-2.6); Phosphorus 5.7 mg/dL (2.5-4.90); Total Protein 6.4 g/dL (6.4-8.2)
[2021-06-20] MEDS: SODIUM CHLOR 0.9% PF (SALINE LOCK) 10ML VIAL/SYR IV SCH ×2 (09:18→20:47)
[2021-06-20 10:56] LABS: Calcium 13.2 mg/dL (8.5-10.1)
[2021-06-20] MEDS ORDERED: FUROSEMIDE 40 MG/4 ML VIAL IV ONE (12:15)
[2021-06-20] MEDS ORDERED: SODIUM CHLORIDE 0.9% 1,000 ML IV ONE (12:15)
[2021-06-20 12:33] VITALS: BP 164/99
[2021-06-20] MEDS: cloNIDine 0.2 mg/24hr 7DAY PATCH TD SCH (14:34)
[2021-06-20 16:52] VITALS: BP 152/89
[2021-06-20] MEDS ORDERED: TPN PER PHARMACY IV NR ×7 (20:00)
[2021-06-20 21:56] VITALS: BP 163/101
[2021-06-21] MEDS: FUROSEMIDE 40 MG/4 ML VIAL IV SCH ×2 (01:15→05:57)
[2021-06-21] MEDS: METOPROLOL TARTRATE 1MG/1ML-5ML VIAL IV SCH ×4 (01:16→18:00)
[2021-06-21] MEDS: ACCU-CHEK COMFORT CURVE STRIP VI SCH ×4 (01:16→17:56)
[2021-06-21] MEDS: LABETALOL HCL 5 MG/ML 4ML SYRINGE IV PRN (03:14)
[2021-06-21 04:43] VITALS: BP 144/92
[2021-06-21] MEDS: InsuLIN REG 1unit/0.01ml Soln (100units/ml) SC SCH ×4 (06:00→17:56)
[2021-06-21 08:23] LABS: BUN/Creatinine Ratio 26.1; Bilirubin, Total 0.3 mg/dL (0.2-1.0); Magnesium 1.9 mg/dL (1.6-2.6); Phosphorus 5.6 mg/dL (2.5-4.90); Total Protein 6.5 g/dL (6.4-8.2)
[2021-06-21 09:00] VITALS: BP 144/93
[2021-06-21] MEDS: SODIUM CHLOR 0.9% PF (SALINE LOCK) 10ML VIAL/SYR IV SCH ×2 (09:50→21:41)
[2021-06-21 09:58] LABS: Calcium 14.3 mg/dL (8.5-10.1)
[2021-06-21] MEDS ORDERED: SODIUM CHLORIDE 0.9% 1,000 ML IV ONE (11:15)
[2021-06-21 13:00] VITALS: BP 158/98
[2021-06-21] MEDS ORDERED: methylPREDNISolone SOD SUCC 40 MG/ML VL IV ONE (15:30)
[2021-06-21] MEDS ORDERED: PAMIDRONATE DISODIUM IV ONE (15:45)
[2021-06-21] MEDS ORDERED: SODIUM CHL 0.9% IV ONE (15:45)
[2021-06-21 16:47] VITALS: BP 151/89
[2021-06-21] MEDS ORDERED: FUROSEMIDE 40 MG/4 ML VIAL IV SCH ×2 (18:00)
[2021-06-21] MEDS ORDERED: TPN PER PHARMACY IV NR ×9 (20:00)
[2021-06-21] MEDS: methylPREDNISolone SOD SUCC 40 MG/ML VL IV SCH (21:41)
[2021-06-21 22:00] VITALS: BP 154/100
[2021-06-22] MEDS: ACCU-CHEK COMFORT CURVE STRIP VI SCH ×5 (01:35→23:18)
[2021-06-22] MEDS: METOPROLOL TARTRATE 1MG/1ML-5ML VIAL IV SCH ×3 (01:35→12:07)
[2021-06-22] MEDS: InsuLIN REG 1unit/0.01ml Soln (100units/ml) SC SCH ×5 (01:36→23:18)
[2021-06-22 05:00] VITALS: BP 175/104
[2021-06-22 09:00] VITALS: BP 164/107
[2021-06-22] MEDS: SODIUM CHLOR 0.9% PF (SALINE LOCK) 10ML VIAL/SYR IV SCH ×2 (09:29→21:46)
[2021-06-22] MEDS: methylPREDNISolone SOD SUCC 40 MG/ML VL IV SCH ×2 (09:29→21:46)
[2021-06-22] MEDS: LABETALOL HCL 5 MG/ML 4ML SYRINGE IV PRN ×3 (09:30→21:52)
[2021-06-22 13:00] VITALS: BP 167/107
[2021-06-22] MEDS: cloNIDine 0.3 mg/24hr 7DAY PATCH TD SCH (14:09)
[2021-06-22 14:39] LABS: Magnesium 1.7 mg/dL (1.6-2.6); Potassium 3.8 mmol/L (3.5-5.1)
[2021-06-22 14:46] LABS: BUN/Creatinine Ratio 31.2; Bilirubin, Total 0.4 mg/dL (0.2-1.0); Phosphorus 4.6 mg/dL (2.5-4.90); Pre Albumin 13.6 mg/dL (20.0-40.0); Total Protein 7.4 g/dL (6.4-8.2)
[2021-06-22 15:32] LABS: Calcium 14.2 mg/dL (8.5-10.1)
[2021-06-22] MEDS: SODIUM CHLORIDE 0.9% 1,000 ML IV SCH (15:51)
[2021-06-22 17:00] VITALS: BP 165/108
[2021-06-22] MEDS ORDERED: POTASSIUM CHL 10MEQ/50ML 50 ML IV ONE (17:30)
[2021-06-22] MEDS ORDERED: TPN PER PHARMACY IV NR ×6 (20:00)
[2021-06-22 22:00] VITALS: BP 160/102
[2021-06-23] MEDS: SODIUM CHLORIDE 0.9% 1,000 ML IV SCH ×3 (02:00→16:49)
[2021-06-23 05:00] VITALS: BP 160/106
[2021-06-23] MEDS: ACCU-CHEK COMFORT CURVE STRIP VI SCH ×3 (06:07→17:09)
[2021-06-23] MEDS: InsuLIN REG 1unit/0.01ml Soln (100units/ml) SC SCH ×3 (06:11→17:09)
[2021-06-23] MEDS: LABETALOL HCL 5 MG/ML 4ML SYRINGE IV PRN ×4 (06:54→21:07)
[2021-06-23 07:10] LABS: BUN/Creatinine Ratio 38.7; Magnesium 2.1 mg/dL (1.6-2.6); Potassium 3.6 mmol/L (3.5-5.1)
[2021-06-23 08:14] LABS: Bilirubin, Total 0.7 mg/dL (0.2-1.0); Phosphorus 4.2 mg/dL (2.5-4.90); Total Protein 6.6 g/dL (6.4-8.2)
[2021-06-23 08:45] VITALS: BP 156/92
[2021-06-23 09:03] LABS: Calcium 13.6 mg/dL (8.5-10.1)
[2021-06-23] MEDS: SODIUM CHLOR 0.9% PF (SALINE LOCK) 10ML VIAL/SYR IV SCH ×2 (09:16→21:01)
[2021-06-23] MEDS: methylPREDNISolone SOD SUCC 40 MG/ML VL IV SCH ×2 (09:16→21:01)
[2021-06-23 12:37] VITALS: BP 177/101
[2021-06-23 16:26] LABS: Pre Albumin 16.8 mg/dL (20.0-40.0)
[2021-06-23 17:00] VITALS: BP 195/111
[2021-06-23] MEDS ORDERED: TPN PER PHARMACY IV NR ×9 (20:00)
[2021-06-23 22:00] VITALS: BP 183/95
[2021-06-23] MEDS: MORPHINE SULFATE INJECTION 2 MG/ML SYRG IV PRN (22:40)
[2021-06-24] MEDS: ACCU-CHEK COMFORT CURVE STRIP VI SCH ×2 (00:04→06:14)
[2021-06-24] MEDS: LABETALOL HCL 5 MG/ML 4ML SYRINGE IV PRN ×2 (00:26→03:17)
[2021-06-24 05:23] VITALS: BP 164/95
[2021-06-24] MEDS: InsuLIN REG 1unit/0.01ml Soln (100units/ml) SC SCH ×2 (06:19)
[2021-06-24] MEDS: MORPHINE SULFATE INJECTION 2 MG/ML SYRG IV PRN (06:20)
[2021-06-24 07:57] LABS: Potassium 3.7 mmol/L (3.5-5.1)
[2021-06-24 08:05] LABS: BUN/Creatinine Ratio 43.9; Phosphorus 3.8 mg/dL (2.5-4.90)
[2021-06-24 08:08] LABS: Bilirubin, Total 0.8 mg/dL (0.2-1.0); Total Protein 7.2 g/dL (6.4-8.2)
[2021-06-24 08:30] VITALS: BP 165/100
[2021-06-24] MEDS: methylPREDNISolone SOD SUCC 40 MG/ML VL IV SCH ×2 (09:20→22:01)
[2021-06-24] MEDS: SODIUM CHLOR 0.9% PF (SALINE LOCK) 10ML VIAL/SYR IV SCH ×2 (09:20→22:01)
[2021-06-24] MEDS: LORazepam 2MG/ML-1ML VIAL IV PRN (09:21)
[2021-06-24] MEDS: SODIUM CHLORIDE 0.9% 1,000 ML IV SCH (10:17)
[2021-06-24] MEDS: D5W/SOD CHL 0.45% 1,000 ML IV SCH ×2 (12:00→15:17)
[2021-06-24 12:30] VITALS: BP 166/106
[2021-06-24 17:00] VITALS: BP 155/87
[2021-06-24] MEDS ORDERED: TPN PER PHARMACY IV NR ×9 (20:00)
[2021-06-24 22:00] VITALS: BP 141/104
[2021-06-25 05:00] VITALS: BP 164/80
[2021-06-25 07:20] LABS: Potassium 4.5 mmol/L (3.5-5.1)
[2021-06-25 07:23] LABS: BUN/Creatinine Ratio 47.6; Magnesium 2.2 mg/dL (1.6-2.6)
[2021-06-25 07:28] LABS: Bilirubin, Total 0.9 mg/dL (0.2-1.0); Phosphorus 4.8 mg/dL (2.5-4.90); Total Protein 6.7 g/dL (6.4-8.2)
[2021-06-25 09:00] VITALS: BP 162/95
[2021-06-25] MEDS: methylPREDNISolone SOD SUCC 40 MG/ML VL IV SCH (09:54)
[2021-06-25] MEDS: SODIUM CHLOR 0.9% PF (SALINE LOCK) 10ML VIAL/SYR IV SCH ×2 (09:54→21:46)
[2021-06-25 13:00] VITALS: BP 158/98
[2021-06-25 17:00] VITALS: BP 158/102
[2021-06-25] MEDS ORDERED: MORPHINE SULFATE INJECTION 2 MG/ML SYRG IV PRN (18:30)
[2021-06-25] MEDS ORDERED: LORazepam 2MG/ML-1ML VIAL IV PRN (18:30)
[2021-06-25 22:00] VITALS: BP 146/94
[2021-06-26 05:00] VITALS: BP 158/91
[2021-06-26 09:00] VITALS: BP 179/97
[2021-06-26] MEDS: SODIUM CHLOR 0.9% PF (SALINE LOCK) 10ML VIAL/SYR IV SCH ×2 (10:43→21:58)
[2021-06-26 13:00] VITALS: BP 186/97
[2021-06-26 17:00] VITALS: BP_SYST 130; BP_SYST 179; BP_DIAS 71; BP_DIAS 99
[2021-06-26] MEDS: D5W/SOD CHLO 0.9% 1,000 ML IV SCH (20:23)
[2021-06-26 22:00] VITALS: BP 161/87
[2021-06-26] MEDS: hydrALAZINE HCL 20 MG/ML VL IV PRN (22:00)
[2021-06-27 05:00] VITALS: BP 191/94
[2021-06-27] MEDS: hydrALAZINE HCL 20 MG/ML VL IV PRN ×3 (05:04→20:56)
[2021-06-27 09:00] VITALS: BP 181/102
[2021-06-27] MEDS: SODIUM CHLOR 0.9% PF (SALINE LOCK) 10ML VIAL/SYR IV SCH ×2 (10:20→22:00)
[2021-06-27 13:00] VITALS: BP 180/108
[2021-06-27] MEDS: D5W/SOD CHLO 0.9% 1,000 ML IV SCH (15:45)
[2021-06-27 16:56] VITALS: BP 185/111
[2021-06-27 22:00] VITALS: BP 158/91
[2021-06-28 05:00] VITALS: BP 188/97
[2021-06-28] MEDS: hydrALAZINE HCL 20 MG/ML VL IV PRN ×3 (05:38→16:55)
[2021-06-28 08:30] VITALS: BP 182/91
[2021-06-28] MEDS: SODIUM CHLOR 0.9% PF (SALINE LOCK) 10ML VIAL/SYR IV SCH ×2 (10:14→21:48)
[2021-06-28] MEDS: D5W/SOD CHLO 0.9% 1,000 ML IV SCH (11:45)
[2021-06-28 13:00] VITALS: BP 179/100
[2021-06-28 17:00] VITALS: BP 187/94
[2021-06-28 22:00] VITALS: BP 151/94
[2021-06-29 05:00] VITALS: BP 169/98
[2021-06-29] MEDS: hydrALAZINE HCL 20 MG/ML VL IV PRN (05:27)
[2021-06-29 09:00] VITALS: BP 150/88
[2021-06-29] MEDS: SODIUM CHLOR 0.9% PF (SALINE LOCK) 10ML VIAL/SYR IV SCH ×2 (10:00→21:48)
[2021-06-29 13:00] VITALS: BP 153/92
[2021-06-29 17:00] VITALS: BP 156/98
[2021-06-29] MEDS: cloNIDine 0.3 mg/24hr 7DAY PATCH TD SCH (20:35)
[2021-06-29 22:00] VITALS: BP 138/82
[2021-06-30 04:41] VITALS: BP 166/102
[2021-06-30] MEDS: hydrALAZINE HCL 20 MG/ML VL IV PRN (04:43)
[2021-06-30 08:35] VITALS: BP 152/95
[2021-06-30] MEDS: SODIUM CHLOR 0.9% PF (SALINE LOCK) 10ML VIAL/SYR IV SCH (10:32)
[2021-06-30 12:56] VITALS: BP 155/94
[2021-06-30 16:50] VITALS: BP 153/97
== END 2021-06-30 19:15 | disposition hospice, inpatient (51) | DRG 5 ==
LOC: EDBD 13:14 → ER 13:14 → TELE-EAST 22:27 → TELE-E-ADS 05-07 12:03 → ICU WEST 05-09 17:02 → TELE-EAST 06-07 21:53 → EAST 06-29 09:37
PROVIDERS: ADMIT Nurse Practitioner Family; ATTEND Internal Medicine
PROC: 30233N1 Transfusion of Nonautologous Red Blood Cells into Peripheral Vein, Percutaneous Approach (ICD-10-PCS; 2021-05-01)
PROC: XW033E5 Introduction of Remdesivir Anti-infective into Peripheral Vein, Percutaneous Approach, New Technology Group 5 (ICD-10-PCS; 2021-05-03)
PROC: 5A0945A Assistance with Respiratory Ventilation, 24-96 Consecutive Hours, High Flow/Velocity Cannula (ICD-10-PCS; 2021-05-07)
PROC: 5A1955Z Respiratory Ventilation, Greater than 96 Consecutive Hours (ICD-10-PCS; principal; 2021-05-09)
PROC: 0BH17EZ Insertion of Endotracheal Airway into Trachea, Via Natural or Artificial Opening (ICD-10-PCS; 2021-05-09)
PROC: 06HY33Z Insertion of Infusion Device into Lower Vein, Percutaneous Approach (ICD-10-PCS; 2021-05-10)
PROC: 02HV33Z Insertion of Infusion Device into Superior Vena Cava, Percutaneous Approach (ICD-10-PCS; 2021-05-10)
PROC: B544ZZA Ultrasonography of Left Jugular Veins, Guidance (ICD-10-PCS; 2021-05-10)
PROC: 05HY33Z Insertion of Infusion Device into Upper Vein, Percutaneous Approach (ICD-10-PCS; 2021-05-14)
PROC: 06HY33Z Insertion of Infusion Device into Lower Vein, Percutaneous Approach (ICD-10-PCS; 2021-05-20)
PROC: 0B110F4 Bypass Trachea to Cutaneous with Tracheostomy Device, Open Approach (ICD-10-PCS; 2021-05-31)
DX: U07.1 COVID-19 (principal); I63.9 Cerebral infarction, unspecified; J12.82 Pneumonia due to coronavirus disease 2019; A41.89 Other specified sepsis; J96.21 Acute and chronic respiratory failure with hypoxia; N17.0 Acute kidney failure with tubular necrosis; D61.818 Other pancytopenia; E43 Unspecified severe protein-calorie malnutrition; E83.51 Hypocalcemia; D68.69 Other thrombophilia; Z66 Do not resuscitate; G93.41 Metabolic encephalopathy; I21.A1 Myocardial infarction type 2; E87.6 Hypokalemia; R56.9 Unspecified convulsions; I47.1 Supraventricular tachycardia; E88.09 Other disorders of plasma-protein metabolism, not elsewhere classified; E66.9 Obesity, unspecified; F31.9 Bipolar disorder, unspecified; F41.9 Anxiety disorder, unspecified; D50.9 Iron deficiency anemia, unspecified; E83.52 Hypercalcemia; E87.1 Hypo-osmolality and hyponatremia; G81.91 Hemiplegia, unspecified affecting right dominant side; G81.94 Hemiplegia, unspecified affecting left nondominant side; I48.92 Unspecified atrial flutter; N18.4 Chronic kidney disease, stage 4 (severe); I50.31 Acute diastolic (congestive) heart failure; I13.0 Hypertensive heart and chronic kidney disease with heart failure and stage 1 through stage 4 chronic kidney disease, or unspecified chronic kidney disease; M19.90 Unspecified osteoarthritis, unspecified site; I48.91 Unspecified atrial fibrillation; R65.21 Severe sepsis with septic shock; G93.1 Anoxic brain damage, not elsewhere classified; Z51.5 Encounter for palliative care; Z74.01 Bed confinement status; Z99.11 Dependence on respirator [ventilator] status; Z99.2 Dependence on renal dialysis; Z68.26 Body mass index [BMI] 26.0-26.9, adult; Z88.5 Allergy status to narcotic agent; Z90.49 Acquired absence of other specified parts of digestive tract; Z98.84 Bariatric surgery status; Z87.442 Personal history of urinary calculi; Z88.1 Allergy status to other antibiotic agents
CPT/HCPCS: 36415; 36430; 36600; 70450; 71045; 74176; 76775; 80048; 80053; 80061; 80074; 80307; 81001; 81241; 82040; 82270; 82550; 82607; 82668; 82728; 82746; 82805; 82962; 83010; 83036; 83090; 83540; 83550; 83605; 83615; 83735; 83880; 84100; 84439; 84443; 84478; 84484; 85007; 85025; 85027; 85045; 85301; 85302; 85303; 85305; 85306; 85379; 85610; 85613; 85652; 85670; 85705; 85730; 85732; 86141; 86147; 86850; 86900; 86901; 86920; 87040; 87045; 87070; 87081; 87086; 87088; 87205; 87426; 87427; 87493; 90935; 92610; 93005; 93306; 93886; 93970; 94002; 94003; 94640; 94668; 94760; 95819; 96361; 96365; 96375; 97110; 97163; 97530; 99291; A4565; A4605; C9113; G0378; J0153; J0696; J1100; J1642; J1815; J2001; J2185; J2248; J2250; J2405; J2704; J3480; J3490; J7042; J7060; J7131; P9047